=== PATIENT | male | born 1945 | race Hispanic/Latino ===

== ENCOUNTER 2017-12-16 12:26 | Inpatient (IN) | payer MEDICARE ==
[2017-12-16 12:46] VITALS: BMI 39.5
--- NOTE | 2017-12-16 17:46 | PCM.OPOC ---
Physiatry Overall Plan of Care - Overall Plan of Care Estimated Length of Stay in Weeks: 3 Rehab Impairment: Mobility, Gait, Balance, Coordination Etiologic Diagnosis: Amputee Rehab/Medical Prognosis: Fair - Anticipated Interventions Physical Therapy:: Yes Occupational Therapy:: Yes Speech Therapy:: No Recreational Therapy:: Yes - Therapy Goals Bed Mobility: Supervision Ambulation: Minimal Assistance Functional Positional Changes:: Supervision - Discharge Plan Identification of Barriers to Discharge: Cognition, Home Situation Discharge Destination: Subacute
--- NOTE | 2017-12-16 17:50 | CP.PCM.CON ---
History of Present Illness - History of Present Illness History of Present Illness: Dr Huerta PMR coverage consultation on Tj Cavanaugh, born 1945 who has been admitted to [facility] for acute inpatient rehabilitation following a right BKA. He was a very heavy smoker. +PVD. Post op stable and on no medications. Case is complicated by Parkinson's disease. Review of Systems - Constitutional Constitutional: absent: Anorexia, Chills - EENT Eyes: absent: Blind Spots Ears: absent: Ear Discharge, Ear Pain, Tinnitus Nose/Mouth/Throat: absent: Nasal Congestion - Cardiovascular Cardiovascular: absent: Chest Pain - Respiratory Respiratory: absent: Cough, Dyspnea - Gastrointestinal Gastrointestinal: Constipation (this is a baseline though). absent: Abdominal Pain, Belching - Musculoskeletal Musculoskeletal: absent: Numbness - Integumentary Integumentary: Other (right BKA 24 bri) Past Patient History - Past Social History Smoking Status: Heavy Smoker > 10 Cigarettes Daily Alcohol: Occasional Drugs: Denies Home Situation {Lives}: Alone - CARDIAC Hx Circulatory Problems: Yes Hx Hypertension: Yes Hx Pacemaker: Yes Hx Peripheral Vascular Disease: Yes - PULMONARY Hx Chronic Obstructive Pulmonary Disease (COPD): Yes - NEUROLOGICAL Hx Parkinson's Disease: Yes - ENDOCRINE/METABOLIC Hx Diabetes Mellitus Type 2: Yes - MUSCULOSKELETAL/RHEUMATOLOGICAL Hx Back Pain: Yes Hx Falls: No - PSYCHIATRIC Hx Substance Use: No - SURGICAL HISTORY Other/Comment: HX of CVAx3, Parkinsons , CAD with pacemaker - ANESTHESIA Hx Anesthesia Reactions: No Meds Allergies/Adverse Reactions: Allergies Allergy/AdvReac Type Severity Reaction Status Date / Time No Known Allergies Allergy Verified 12/16/17 16:28 Physical Exam - Constitutional Appears: Non-toxic, No Acute Distress - Head Exam Head Exam: ATRAUMATIC, NORMAL INSPECTION, NORMOCEPHALIC - Eye Exam Eye Exam: EOMI - ENT Exam ENT Exam: Mucous Membranes Moist - Respiratory Exam Respiratory Exam: NORMAL BREATHING PATTERN - Cardiovascular Exam Cardiovascular Exam: REGULAR RHYTHM - GI/Abdominal Exam GI & Abdominal Exam: Distended, Normal Bowel Sounds. absent: Firm - Neurological Exam Neurological exam: Alert, CN II-XII Intact, Oriented x3 Assessment & Plan - Assessment and Plan (Free Text) Assessment: PT/OT to continue to help increase functional independence Team conference for d/c planning Pain: controlled Vascular: no evidence of DVT. +PVD will clean the wound and apply xeroform GI: No evidence of constipation or diarrhea Patient is an excellent acute rehabilitation candidate and will have focused pain management, wound care, PT, OT and recreational therapy to help facilitate a safe and appropriate d/c plan impairment code 05.4
[2017-12-16] MEDS ORDERED: Oxycodone/Acetaminophen 5/325 mg Tab PO PRN ×2 (18:07→21:51)
--- NOTE | 2017-12-16 18:07 | CP.PCM.HP ---
History of Present Illness - History of Present Illness History of Present Illness: 72 y/o male with PMH parkinsonism ,IDDM, HTN, Dyslipidemia, CAD ,obesity, COPD , sleep apnea on CPAP ( not compliant ) PAD with multiple stents and right fem- pop bypass , SSS s/p pacemaker placement was transferred to [facility] acute rehab from [facility] for physical therapy after right BKA for ischemic limb.As per patient he noticed an open wound on his right foot for more than 3 weeks or longer prior to admission . He decided to call EMS and was taken to hospital for evaluation of severe pain and discomfort to right foot, unable to ambulate. He also noticed discoloration to his foot. After evaluation by multiple consultants it wsa decided that right below knee amputation was necessary. He underwent right BKA 12/09/17. At present doing well , pain is controlled and surgical wound healing well. Denies any chest pain , SOB, palpitations, PND or orthopnea. Refuses to use CPAP at night because feels uncomfortable. 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 Medications; Atorvastatin, Plavix, Heparin, sinemet, primidone, insulin , Lyrica ,Nicotine,losartan, Hydralazine, Perocet , Protonix Surgery ; pacemaker placemnet, stent placement and rigght fem - poppliteal bypass in august 2015, multiple angio stent placement for PVD , cataract Family history ; Father had herat problems Social history ; Lives in [place] by himself , has 5 children , active smoker 1 ppd x 60 years, just quit with this hospitalization, denies drug abuse or ETOH abuse, used to walk with walker ROS ;14 point review of system negative except above PMD ; Dr Suggs Present on Admission - Present on Admission Any Indicators Present on Admission: Yes History of Uncontrolled Diabetes: Yes Urinary Catheter: No Decubitus Ulcer Present: No Review of Systems - Review of Systems All systems: reviewed and no additional remarkable complaints except Past Patient History - Infectious Disease Hx of Infectious Diseases: None - Tetanus Immunizations Tetanus Immunization: Unknown - Past Medical History & Family History Past Medical History?: Yes Past Family History: Reviewed and not pertinent - Past Social History Smoking Status: Heavy Smoker > 10 Cigarettes Daily Chewing Tobacco Use: No Cigar Use: No Alcohol: Occasional Drugs: Denies Home Situation {Lives}: Alone - CARDIAC Hx Circulatory Problems: Yes Hx Hypercholesterolemia: Yes Hx Hypertension: Yes Hx Pacemaker: Yes Hx Peripheral Vascular Disease: Yes - PULMONARY Hx Chronic Obstructive Pulmonary Disease (COPD): Yes Hx Sleep Apnea: Yes - NEUROLOGICAL Hx Parkinson's Disease: Yes - ENDOCRINE/METABOLIC Hx Diabetes Mellitus Type 2: Yes - HEMATOLOGICAL/ONCOLOGICAL Hx AIDS: No Hx Human Immunodeficiency Virus (HIV): No - MUSCULOSKELETAL/RHEUMATOLOGICAL Hx Back Pain: Yes (lumbar disc herniation ) Hx Falls: No - PSYCHIATRIC Hx Substance Use: No - SURGICAL HISTORY Hx Surgeries: Yes Hx Amputation: Yes Hx Angiogram: Yes Hx Angioplasty: Yes Hx Cataract Extraction: Yes Hx Cardiac Catheterization: Yes Other/Comment: HX of CVAx3, Parkinsons , CAD with pacemaker - ANESTHESIA Hx Anesthesia Reactions: No Meds Allergies/Adverse Reactions: Allergies Allergy/AdvReac Type Severity Reaction Status Date / Time No Known Allergies Allergy Verified 12/16/17 16:28 Physical Exam - Constitutional Appears: Non-toxic, No Acute Distress, Other (obese ) - Head Exam Head Exam: ATRAUMATIC, NORMAL INSPECTION, NORMOCEPHALIC - Eye Exam Eye Exam: EOMI, Normal appearance, PERRL Pupil Exam: NORMAL ACCOMODATION - ENT Exam ENT Exam: Mucous Membranes Moist, Normal Exam - Neck Exam Neck exam: Positive for: Full Rom, Normal Inspection - Respiratory Exam Respiratory Exam: Clear to Auscultation Bilateral, NORMAL BREATHING PATTERN. absent: Rales, Rhonchi, Wheezes - Cardiovascular Exam Cardiovascular Exam: REGULAR RHYTHM, RRR, +S1, +S2. absent: JVD - GI/Abdominal Exam GI & Abdominal Exam: Normal Bowel Sounds, Soft. absent: Distended, Guarding, Rebound, Tenderness - Rectal Exam Rectal Exam: Deferred - Extremities Exam Extremities exam: Positive for: normal capillary refill, pedal edema (2 + to LLE ), pedal pulses present. Negative for: calf tenderness Additional comments: right BKA with bri in place, healing well - Back Exam Back exam: NORMAL INSPECTION - Neurological Exam Neurological exam: Alert, CN II-XII Intact, Oriented x3 Additional comments: resting tremors to upper extremities - Psychiatric Exam Psychiatric exam: Normal Affect - Skin Skin Exam: Dry, Normal Color, Warm Results - Vital Signs Recent Vital Signs: Last Vital Signs Temp Pulse 62 12/16/17 16:29 Resp 20 12/16/17 16:29 BP Pulse Ox 98 12/16/17 16:29 Assessment & Plan - Assessment and Plan (Free Text) Assessment: 72 y/o male with PMH Parkinsonism ,IDDM, HTN, Dyslipidemia, CAD ,obesity, COPD , sleep apnea on CPAP ( not compliant ) PAD with multiple stents and right fem- pop bypass , SSS s/p pacemaker placement was transferred to [facility] acute rehab from [facility] for physical therapy after right BKA for ischemic limb.As per patient he noticed an open wound on his right foot for more than 3 weeks or longer prior to admission . He decided to call EMS and was taken to hospital for evaluation of severe pain and discomfort to right foot, unable to ambulate. He also noticed discoloration to his foot. After evaluation by multiple consultants it wsa decided that right below knee amputation was necessary. He underwent right BKA 12/09/17. At present doing well , pain is controlled and surgical wound healing well. Denies any chest pain , SOB, palpitations, PND or orthopnea. Refuses to use CPAP at night because feels uncomfortable. 1. s/p right BKA for ischemic limb Admit patient to acute rehab for physical therapy physiatry consult with Dr. Martinez continue local wound care to the stump pain management with percoset PRN, Lyrica Continue Plavix , Atorvastatin and Heparin for DVt prophylaxis 2. IDDM uncontrolled Accuchecks, insulin coverage Diabetic diet resume his insulin regiment that wsa strated at [facility] 3. Parkinsonism On Sinemet and Primidone 4. Sleep Apnea refusing CPAP 5. SSS s/p pacemaker 6.Hypertension on Hydralazine , losartan 7. Obesity BMI 39 8. PAD with multiple angio and stents/ CAD Continue Plavix , statin BP abd diabetic control 9. History CVA no residual deficit 10. DVt prophylaxis SCD to LLE Heparin SQ
[2017-12-16] MEDS: Insulin Detemir 100 Units/ml Inj SC SCH (21:24)
[2017-12-16] MEDS: Insulin Lispro (humaLOG) 100 Units/ml Inj SC SCH (21:25)
[2017-12-17] MEDS: Pantoprazole 40 mg EC Tab PO SCH (07:04)
[2017-12-17] MEDS: Insulin Lispro (humaLOG) 100 Units/ml Inj SC SCH ×4 (07:05→21:11)
[2017-12-17] MEDS: Insulin Regular 100 units/ml SC SCH ×3 (07:30→16:30)
[2017-12-17] MEDS: Insulin Detemir 100 Units/ml Inj SC SCH (21:12)
[2017-12-18] MEDS: Pantoprazole 40 mg EC Tab PO SCH (06:51)
[2017-12-18] MEDS: Insulin Regular 100 units/ml SC SCH ×4 (06:52→16:47)
[2017-12-18] MEDS: Insulin Lispro (humaLOG) 100 Units/ml Inj SC SCH ×4 (06:53→21:28)
[2017-12-18] MEDS: Insulin Detemir 100 Units/ml Inj SC SCH (21:29)
[2017-12-19] MEDS: Pantoprazole 40 mg EC Tab PO SCH (06:39)
[2017-12-19] MEDS: Insulin Lispro (humaLOG) 100 Units/ml Inj SC SCH ×6 (06:40→21:18)
[2017-12-19] MEDS: Insulin Regular 100 units/ml SC SCH ×2 (06:40→12:19)
[2017-12-19 06:41] LABS: BLOOD UREA NITROGEN 17 mg/dl (9-20); GFR AFRICAN-AMERICAN > 60; GFR NON-AFRICAN AMERICAN > 60
[2017-12-19 06:45] LABS: HEMOGLOBIN 10.3 g/dL (12.0-18.0); MEAN CELL VOLUME 80.8 fl (80.0-94.0); MEAN CORPUSCULAR HEMOGLOBIN 26.9 pg (27.0-31.0); MEAN CORPUSCULAR HGB CONC 33.3 g/dL (33.0-37.0); RBC 3.82 Mil/uL (4.40-5.90)
[2017-12-19] MEDS ORDERED: Oxycodone/Acetaminophen 5/325 mg Tab PO PRN (13:48)
--- NOTE | 2017-12-19 14:46 | CP.PCM.PN ---
Subjective - Date & Time of Evaluation Date of Evaluation: 12/19/17 Time of Evaluation: 12:00 - Subjective Subjective: Patient was seen and examined at bedside. He is doing well. OOB to chair at bedside. Tolerating therapies well. HD stable, NAD. Objective - Vital Signs/Intake and Output Vital Signs (last 24 hours): Temp Pulse Resp BP Pulse Ox 97.7 F 64 20 116/76 97 12/19/17 07:41 12/19/17 12:20 12/19/17 07:41 12/19/17 12:20 12/19/17 10:29 - Medications Medications: Current Medications Acetaminophen (Tylenol 325mg Tab) 650 mg PO Q6H PRN PRN Reason: Pain, Mild (1-3) Atorvastatin Calcium (Lipitor) 80 mg PO HS [facility] Last Admin: 12/18/17 21:29 Dose: 80 mg Carbidopa/Levodopa (Sinemet) 1 tab PO BID [facility] Last Admin: 12/19/17 08:18 Dose: 1 tab Clopidogrel Bisulfate (Plavix) 75 mg PO QAM [facility] Last Admin: 12/19/17 08:17 Dose: 75 mg Glipizide (Glucotrol) 10 mg PO 0730,1630 [facility] Last Admin: 12/19/17 06:39 Dose: 10 mg Heparin Sodium (Porcine) (Heparin) 5,000 units SC Q8 [facility] PRN Reason: Protocol Last Admin: 12/19/17 06:38 Dose: 5,000 units Hydralazine HCl (Apresoline) 25 mg PO Q8 [facility] Insulin Detemir (Levemir) 30 units SC HS [facility] Last Admin: 12/18/17 21:29 Dose: 30 unit Insulin Human Lispro (Humalog) 0 units SC ACHS [facility] PRN Reason: Protocol Last Admin: 12/19/17 12:17 Dose: 3 units Insulin Human Lispro (Humalog) 4 units SC AC [facility] Last Admin: 12/19/17 12:19 Dose: 4 unit Losartan Potassium (Cozaar) 50 mg PO DAILY [facility] Last Admin: 12/19/17 08:17 Dose: 50 mg Nicotine (Nicoderm Cq) 1 patch TD DAILY [facility] Last Admin: 12/19/17 08:17 Dose: 1 patch Oxycodone/Acetaminophen (Percocet 5/325 Mg Tab) 1 tab PO Q4 PRN PRN Reason: Other Stop: 03/29/18 13:48 Pantoprazole Sodium (Protonix Ec Tab) 40 mg PO ACB [facility] Last Admin: 12/19/17 06:39 Dose: 40 mg Pregabalin (Lyrica) 50 mg PO BID [facility] Last Admin: 12/19/17 08:19 Dose: 50 mg Primidone (Mysoline) 50 mg PO HS [facility] Last Admin: 12/18/17 21:30 Dose: 50 mg - Labs Labs: 12/19/17 05:20 12/19/17 05:20 - Additional Findings Additional findings: Physical exam: Constitutional- cooperative, awake, alert Head- NCAT, PERRL Eye- PERRL, EOMI ENT- normal exam, MMM. Neck- normal inspection, supple, no JVD Respiratory- CTAB, no wheezes rales rhonchi Cardiovascular- RRR, +S1, +S2 no MRG GI/Abdominal- protuberant but nondistended normal bowel sounds, soft, no mass, no hsm Skin- warm, dry Extremities Exam- s/p Right BKA. left leg normal capillary refill, normal inspection Neurological Exam- alert, awake, oriented Psych- normal mood, normal affect Assessment and Plan - Assessment and Plan (Free Text) Plan: 72 y/o male with PMH Parkinsonism ,IDDM, HTN, Dyslipidemia, CAD ,obesity, COPD , sleep apnea on CPAP ( not compliant ) PAD with multiple stents and right fem- pop bypass , SSS s/p pacemaker placement was transferred to [facility] acute rehab from [facility] for physical therapy after right BKA for ischemic limb.As per patient he noticed an open wound on his right foot for more than 3 weeks or longer prior to admission . He decided to call EMS and was taken to hospital for evaluation of severe pain and discomfort to right foot, unable to ambulate. He also noticed discoloration to his foot. After evaluation by multiple consultants it wsa decided that right below knee amputation was necessary. He underwent right BKA 12/09/17. At present doing well , pain is controlled and surgical wound healing well. Denies any chest pain , SOB, palpitations, PND or orthopnea. Refuses to use CPAP at night because feels uncomfortable. 1. s/p right BKA for ischemic limb Continue acute rehab for physical therapy physiatry consult with Dr. Martinez continue local wound care to the stump pain management with percoset PRN, [place] Continue Plavix , Atorvastatin and Heparin for DVt prophylaxis 2. IDDM- uncontrolled HGA1C = 11.5 Accuchecks, Diabetic diet Levemir 30 units SC HS Lispro 4 units SC AC and lispro sliding scale coverage Glipizide 10 mg po BID 3. Parkinsonism On Sinemet and Primidone 4. Sleep Apnea refusing CPAP 5. SSS s/p pacemaker 6.Hypertension on Hydralazine, decreased to 25 mg po TID as BP is borderline low with QID losartan 7. Obesity BMI 39 8. PAD with multiple angio and stents/ CAD Continue Plavix , statin BP abd diabetic control 9. History CVA no residual deficit statin 10. DVt prophylaxis SCD to LLE Heparin SQ
[2017-12-19] MEDS: Insulin Detemir 100 Units/ml Inj SC SCH (21:08)
[2017-12-20] MEDS: Pantoprazole 40 mg EC Tab PO SCH (06:45)
[2017-12-20] MEDS: Insulin Lispro (humaLOG) 100 Units/ml Inj SC SCH ×7 (06:47→21:55)
--- NOTE | 2017-12-20 21:21 | PN ---
PHYSIATRY PROGRESS NOTE DATE: SUBJECTIVE: The patient is feeling fine, a 72-year-old patient, the patient with status post right below-knee amputation. No acute complaints of stump pain. PHYSICAL EXAMINATION: VITAL SIGNS: Stable. NECK: Supple. CHEST: Symmetrical. HEART: Sounds S1 and S2. ABDOMEN: Benign. EXTREMITIES: No clubbing, cyanosis, or edema. Right stump healing with Phong wrap in place. IMPRESSION: Right below-knee amputation, ICD code of 05.4, also history of cerebrovascular accident, hypertension, diabetes, sleep apnea, and Parkinson's disease. PLAN: Plan for physical therapy, occupational therapy, full range of motion, strengthening, transfers, ambulation, gait training, stump desensitization, and preprosthetic training. Edmond Mittal MD
[2017-12-20] MEDS: Insulin Detemir 100 Units/ml Inj SC SCH (21:55)
[2017-12-21] MEDS: Pantoprazole 40 mg EC Tab PO SCH (06:44)
[2017-12-21] MEDS: Insulin Lispro (humaLOG) 100 Units/ml Inj SC SCH ×7 (07:50→21:37)
--- NOTE | 2017-12-21 12:27 | PSY.TMCNF ---
Nursing - Vital Signs Vital Signs (Last 8 hours): Vital Signs 12/21/17 12/21/17 12/21/17 05:53 08:10 08:41 Temperature 98.0 F Pulse Rate 63 96 H 96 H Respiratory 22 Rate Blood Pressure 151/69 H 104/62 104/62 O2 Sat by Pulse 100 Oximetry Pain: 0 - Precautions: Precautions: Fall Prevention - Medications/Other Issues Comment: On Heparin - Skin Incision Site: right BKA stump/residual Dressing Status: Changed Incision: Healing Well, [place] Intact, No Odor Incision Line Treatment: claeanse with NSS, cover with Gauze,nabil, wrap with saúl wrap - Toileting Toileting: Minimal Assistance - Bladder Management Bladder Pattern: Normal Voiding Method: Toilet Bladder Management: Independent Frequency of Accidents: none - Bowel Management Bowel Pattern: Normal Bowel Management: Moderate Assistance Frequency of Accidents: none - Transfers Transfers: Minimal Assistance - ADL's ADL's: Minimal Assistance - Pain Management Comments: denies - Patient/Family Teaching Comments: safety measures - Goals/Time Frame Comments: fall prevention - Provider Provider: YARELIS Gee,CRRN Physical Therapy - Bed Mobility Bed Mobility: Moderate Assistance, Maximum Assistance - Transfers Wheelchair to Mat: Minimal Assistance Sit to Stand: Minimal Assistance - Ambulation Level of Assistance: Verbal Cues, Minimal Assistance Distance (ft.): 40 Assistive Devices: Rolling Walker - Stair Negotiation Stairs: Level of Assistance: Not Tested - Standing Balance Static Stand: Minimal Assistance - Pain Comment: pt reports occasional pain on distal limb; occasional phantom limb pain - Insight/Carryover Insight/Carryover: Good - Patient/Family Education Comment: Pt education provided for increased safety awareness and proper techniques during functional mobility training. Pt/family education with pts daughter on rehab goals and d/c planning s/p amputation - Assessment/Plan Assessment: Pt is agreeable to participate in recreation therapy sessions. Pt was oriented to benefits and purpose of participating in leisure tasks throughout stay on unit. Pt was provided with word search task to complete during free time as well. Pt's mood is stable-positive throughout stay. Pt will benefit from participating in recreation therapy sessions throughout stay on unit to improve activity tolerance level and leisure awareness level. - Goals Timeframe: 3 weeks Goals: SIt < > supine mod I. Sit < > stand mod I with RW. BEd < > chair transfers mod I with RW. Pt will ambulate 50 ft mod I with RW - Provider Therapist: izabella License Number: [id number] Occupational Therapy - Arousal/Attention/Orientation Patient Orientation: Person, Place, Time - ADL/IADL Self Feeding: Set-up Help Grooming: Supervision, Set-up Help Dressing-Upper Extremity: Supervision, Verbal Cues, Set-up Help Dressing-Lower Extremity: Verbal Cues, Set-up Help, Moderate Assistance Comment: -pt educated on uses/applications of linoleum floor installer, sockaide, long shoe horn & dressing stick; pt needs additional training to improve carryover/imdependence - Sitting Balance Static Sitting: Independent without upper extremity support Dynamic Sitting: Reaches across midline, Reaches out of base of support, Reaches within base of support, Requires supervision Comment: seated at edge of bed - Transfers Wheelchair to Bed Transfers: Verbal Cues, Set-up Help, Minimal Assistance Toilet Transfers: Verbal Cues, Set-up Help, Minimal Assistance Comment: -pivots and with RW. -shower transfer: TBA - Wheelchair Management Level of Assistance: Supervision, Verbal Cues, Set-up Help Distance (ft.): 75 - Upper Extremity Status Right Upper Extremity Comment: resting tremors BUES; A/PROM is WNLs Left Upper Extremity Comment: resting tremors BUES; \A/PROM is WNLs - Pain Comment: pt reports occasional pain on distal limb; occasional phantom limb pain - Insight/Carryover Insight/Carryover: Good - Patient/Family Education Comment: Pt education provided for increased safety awareness and proper techniques during functional mobility training. Pt/family education with pts daughter on rehab goals and d/c planning s/p amputation - Assessment/Plan Assessment: Pt is agreeable to participate in recreation therapy sessions. Pt was oriented to benefits and purpose of participating in leisure tasks throughout stay on unit. Pt was provided with word search task to complete during free time as well. Pt's mood is stable-positive throughout stay. Pt will benefit from participating in recreation therapy sessions throughout stay on unit to improve activity tolerance level and leisure awareness level. - Goals Timeframe: 3 weeks Goals: SIt < > supine mod I. Sit < > stand mod I with RW. BEd < > chair transfers mod I with RW. Pt will ambulate 50 ft mod I with RW - Provider Therapist: Jacqui Olivier, OTR/L Speech Therapy - Plan Assessment: Pt is agreeable to participate in recreation therapy sessions. Pt was oriented to benefits and purpose of participating in leisure tasks throughout stay on unit. Pt was provided with word search task to complete during free time as well. Pt's mood is stable-positive throughout stay. Pt will benefit from participating in recreation therapy sessions throughout stay on unit to improve activity tolerance level and leisure awareness level. Recreational Therapy - Participation Participation: Participates in Individual and/or Group Sessions - Attendance Attendance: 3-5 times per week - Activities Leisure Activities: Television - Socialization Level of Socialization: Initiates/interacts freely with care givers and peer - Assessment Assessment/Plan: Pt is agreeable to participate in recreation therapy sessions. Pt was oriented to benefits and purpose of participating in leisure tasks throughout stay on unit. Pt was provided with word search task to complete during free time as well. Pt's mood is stable-positive throughout stay. Pt will benefit from participating in recreation therapy sessions throughout stay on unit to improve activity tolerance level and leisure awareness level. Problems Currently Limiting Participation: decrease leisure awareness level, decrease mobility within community, L side weakness Goals and Time Frame: Pt will be encouraged to participate in 1:1 and group recreation therapy sessions 3-5x week to improve leisure awareness level, diversion, direction following, and arousal level. - Provider Therapist: Veda aVnn, [employer] #[id number] Nutrition - Current Diet Current Diet/ Supplement/ Feedings: Moderate consistent CHO heart healthy soft diet - Appetite Percent Meal Consumed: 75-100% - Comments Comments: safety measures - Assessment/Goals/Time Frame Assessment/Goals/Time Frame: On Heparin - Provider Provider: Helena Joya RD Case Management - Discharge Plan Discharge Plan: Home with significant other/family Rehabilitation Plan - Treatment Plan Treatment Plan: Physical Therapy, Occupational Therapy, Dietary, Patient/Family Education - Recommendation Recommendation: Physical Therapy, Occupational Therapy, Dietary, Patient/Family Education - Discharge Plan Discharge to: Home (january 01)
--- NOTE | 2017-12-21 13:44 | CP.PCM.PN ---
Subjective - Date & Time of Evaluation Date of Evaluation: 12/21/17 Time of Evaluation: 10:20 - Subjective Subjective: Patient seen and examined. Feeling better. Denied any complaint. Objective - Vital Signs/Intake and Output Vital Signs (last 24 hours): Temp Pulse Resp BP Pulse Ox 98.0 F 96 H 22 104/62 100 12/21/17 08:41 12/21/17 08:41 12/21/17 08:41 12/21/17 08:41 12/21/17 08:41 - Medications Medications: Current Medications Acetaminophen (Tylenol 325mg Tab) 650 mg PO Q6H PRN PRN Reason: Pain, Mild (1-3) Atorvastatin Calcium (Lipitor) 80 mg PO HS [facility] Last Admin: 12/20/17 21:22 Dose: 80 mg Carbidopa/Levodopa (Sinemet) 1 tab PO BID [facility] Last Admin: 12/21/17 08:11 Dose: 1 tab Clopidogrel Bisulfate (Plavix) 75 mg PO QAM [facility] Last Admin: 12/21/17 08:11 Dose: 75 mg Glipizide (Glucotrol) 10 mg PO 0730,1630 [facility] Last Admin: 12/21/17 06:44 Dose: 10 mg Heparin Sodium (Porcine) (Heparin) 5,000 units SC Q8 [facility] PRN Reason: Protocol Last Admin: 12/21/17 13:38 Dose: 5,000 units Hydralazine HCl (Apresoline) 25 mg PO Q8 [facility] Last Admin: 12/21/17 05:53 Dose: 25 mg Insulin Detemir (Levemir) 30 units SC HS [facility] Last Admin: 12/20/17 21:55 Dose: 30 unit Insulin Human Lispro (Humalog) 0 units SC ACHS [facility] PRN Reason: Protocol Last Admin: 12/21/17 12:00 Dose: 3 units Insulin Human Lispro (Humalog) 6 units SC AC [facility] Last Admin: 12/21/17 12:00 Dose: 6 u Losartan Potassium (Cozaar) 50 mg PO DAILY [facility] Last Admin: 12/21/17 08:10 Dose: 50 mg Nicotine (Nicoderm Cq) 1 patch TD DAILY [facility] Last Admin: 12/21/17 08:12 Dose: 1 patch Oxycodone/Acetaminophen (Percocet 5/325 Mg Tab) 1 tab PO Q4 PRN PRN Reason: Other Stop: 12/22/17 13:48 Pantoprazole Sodium (Protonix Ec Tab) 40 mg PO ACB [facility] Last Admin: 12/21/17 06:44 Dose: 40 mg Pregabalin (Lyrica) 50 mg PO BID [facility] Last Admin: 12/21/17 08:08 Dose: 50 mg Primidone (Mysoline) 50 mg PO HS [facility] Last Admin: 12/20/17 21:54 Dose: 50 mg - Labs Labs: 12/19/17 05:20 12/19/17 05:20 - Constitutional Appears: No Acute Distress - Head Exam Head Exam: ATRAUMATIC - Eye Exam Eye Exam: absent: Scleral icterus - ENT Exam ENT Exam: Mucous Membranes Moist - Neck Exam Neck Exam: absent: Meningismus - Respiratory Exam Respiratory Exam: absent: Rales, Rhonchi, Wheezes, Respiratory Distress - Cardiovascular Exam Cardiovascular Exam: REGULAR RHYTHM, +S1, +S2 - GI/Abdominal Exam GI & Abdominal Exam: Soft. absent: Tenderness - Rectal Exam Rectal Exam: Deferred - Extremities Exam Extremities Exam: absent: Normal Inspection (right BKA stump clean and dry, no sign of inflammation) - Back Exam Back Exam: NORMAL INSPECTION - Neurological Exam Neurological Exam: Alert, Oriented x3 - Psychiatric Exam Psychiatric exam: Normal Affect - Skin Skin Exam: Dry, Intact Assessment and Plan - Assessment and Plan (Free Text) Assessment: 72 yo male with history of Parkinson's Disease, DM2, CAD, HTN, COPD, Sleep Apnea , PVD and Pacemaker for SSS had BKA of the right leg on 12/09/17 at [facility] because of gangrene of the left foot. He was transferred to [facility] and admitted at Acute [facility]hab for PT/OT. 1. Post Right BKA Dr Martinez on physiatry consult continue PT/OT pain bearable and manageable with medications stump clean and dry without sign of infection 2. DM2 BS uncontrolled increase Lispro to 6 units SC AC continue Levemir 30 units SC HS continue Glucotrol 10mg PO BID 3. Parkinson's Disease continue Sinemet and Primidone 4. Sleep Apnea continue CPAP HS (patient has been refusing) 5. HTN BP stable continue Hydralazine 25mg PO q 8hrs Losartan 50mg PO daily 6. CAD continue Plavix and statin 7. DVT prophylaxis Heparin 5000 units SC q 8hrs
--- NOTE | 2017-12-21 14:24 | CP.PCM.PN ---
Subjective - Date & Time of Evaluation Date of Evaluation: 12/21/17 Time of Evaluation: 10:00 - Subjective Subjective: no acute stump pain Objective - Vital Signs/Intake and Output Vital Signs (last 24 hours): Temp Pulse Resp BP Pulse Ox 98.0 F 64 22 112/50 L 100 12/21/17 08:41 12/21/17 13:39 12/21/17 08:41 12/21/17 13:39 12/21/17 08:41 - Medications Medications: Current Medications Acetaminophen (Tylenol 325mg Tab) 650 mg PO Q6H PRN PRN Reason: Pain, Mild (1-3) Atorvastatin Calcium (Lipitor) 80 mg PO HS [facility] Last Admin: 12/20/17 21:22 Dose: 80 mg Carbidopa/Levodopa (Sinemet) 1 tab PO BID [facility] Last Admin: 12/21/17 08:11 Dose: 1 tab Clopidogrel Bisulfate (Plavix) 75 mg PO QAM [facility] Last Admin: 12/21/17 08:11 Dose: 75 mg Glipizide (Glucotrol) 10 mg PO 0730,1630 [facility] Last Admin: 12/21/17 06:44 Dose: 10 mg Heparin Sodium (Porcine) (Heparin) 5,000 units SC Q8 [facility] PRN Reason: Protocol Last Admin: 12/21/17 13:38 Dose: 5,000 units Hydralazine HCl (Apresoline) 25 mg PO Q8 [facility] Last Admin: 12/21/17 13:39 Dose: 25 mg Insulin Detemir (Levemir) 30 units SC HS [facility] Last Admin: 12/20/17 21:55 Dose: 30 unit Insulin Human Lispro (Humalog) 0 units SC ACHS [facility] PRN Reason: Protocol Last Admin: 12/21/17 12:00 Dose: 3 units Insulin Human Lispro (Humalog) 6 units SC AC [facility] Last Admin: 12/21/17 12:00 Dose: 6 u Losartan Potassium (Cozaar) 50 mg PO DAILY [facility] Last Admin: 12/21/17 08:10 Dose: 50 mg Nicotine (Nicoderm Cq) 1 patch TD DAILY [facility] Last Admin: 12/21/17 08:12 Dose: 1 patch Oxycodone/Acetaminophen (Percocet 5/325 Mg Tab) 1 tab PO Q4 PRN PRN Reason: Other Stop: 12/22/17 13:48 Pantoprazole Sodium (Protonix Ec Tab) 40 mg PO ACB [facility] Last Admin: 12/21/17 06:44 Dose: 40 mg Pregabalin (Lyrica) 50 mg PO BID [facility] Last Admin: 12/21/17 08:08 Dose: 50 mg Primidone (Mysoline) 50 mg PO HS [facility] Last Admin: 12/20/17 21:54 Dose: 50 mg - Labs Labs: 12/19/17 05:20 12/19/17 05:20 - Head Exam Head Exam: ATRAUMATIC, NORMAL INSPECTION, NORMOCEPHALIC - Eye Exam Eye Exam: EOMI, Normal appearance, PERRL Pupil Exam: NORMAL ACCOMODATION - ENT Exam ENT Exam: Mucous Membranes Moist, Normal Exam - Neck Exam Neck Exam: Normal Inspection - Respiratory Exam Respiratory Exam: NORMAL BREATHING PATTERN - Cardiovascular Exam Cardiovascular Exam: REGULAR RHYTHM - GI/Abdominal Exam GI & Abdominal Exam: Soft, Normal Bowel Sounds - Rectal Exam Rectal Exam: NORMAL INSPECTION - Exam External exam: NORMAL EXTERNAL EXAM - Extremities Exam Extremities Exam: Full ROM, Normal Capillary Refill - Back Exam Back Exam: NORMAL INSPECTION - Neurological Exam Neurological Exam: Alert, Awake Neuro motor strength exam: Left Upper Extremity: 3, Right Upper Extremity: 3, Left Lower Extremity: 3, Right Lower Extremity: 2/1 (righ tBKa stump) - Psychiatric Exam Psychiatric exam: Normal Affect, Normal Mood - Skin Skin Exam: Dry, Intact Assessment and Plan (1) Below knee amputation status Assessment & Plan: plan for physical, occupational rec for Dc january 01 discussed with female for prosthesis Status: Acute (2) Complete below knee amputation of right lower extremity Status: Acute
[2017-12-21] MEDS: Insulin Detemir 100 Units/ml Inj SC SCH (21:37)
[2017-12-22] MEDS: Pantoprazole 40 mg EC Tab PO SCH (06:58)
[2017-12-22] MEDS: Insulin Lispro (humaLOG) 100 Units/ml Inj SC SCH ×7 (07:04→21:15)
[2017-12-22] MEDS ORDERED: Oxycodone/Acetaminophen 5/325 mg Tab PO PRN (15:11)
[2017-12-22] MEDS: Insulin Detemir 100 Units/ml Inj SC SCH (21:14)
[2017-12-23] MEDS: Pantoprazole 40 mg EC Tab PO SCH (06:40)
[2017-12-23] MEDS: Oxycodone/Acetaminophen 5/325 mg Tab PO PRN (07:17)
[2017-12-23] MEDS: Insulin Lispro (humaLOG) 100 Units/ml Inj SC SCH ×7 (07:19→21:34)
--- NOTE | 2017-12-23 12:29 | CP.PCM.PN ---
Subjective - Date & Time of Evaluation Date of Evaluation: 12/23/17 Time of Evaluation: 12:29 - Subjective Subjective: patient doing well, no complaints, participating in physical therapy well. Hemodynamically stable and in no acute distress Objective - Vital Signs/Intake and Output Vital Signs (last 24 hours): Temp Pulse Resp BP Pulse Ox 97.9 F 63 22 130/52 L 95 12/23/17 07:32 12/23/17 08:36 12/23/17 07:32 12/23/17 08:36 12/23/17 07:32 Physical exam: Constitutional- cooperative, awake, alert Head- NCAT, PERRL Eye- PERRL, EOMI ENT- normal exam, MMM. Neck- normal inspection, supple, no JVD Respiratory- CTAB, no wheezes rales rhonchi Cardiovascular- RRR, +S1, +S2 no MRG GI/Abdominal- normal bowel sounds, soft, no mass, no hsm Skin- warm, dry Extremities Exam- normal capillary refill, normal inspections status post rright BKA Neurological Exam- alert, awake, oriented Psych- normal mood, normal affect - Medications Medications: Current Medications Acetaminophen (Tylenol 325mg Tab) 650 mg PO Q6H PRN PRN Reason: Pain, Mild (1-3) Atorvastatin Calcium (Lipitor) 80 mg PO [facility] Last Admin: 12/22/17 21:10 Dose: 80 mg Carbidopa/Levodopa (Sinemet) 1 tab PO BID [facility] Last Admin: 12/23/17 08:35 Dose: 1 tab Clopidogrel Bisulfate (Plavix) 75 mg PO QAM [facility] Last Admin: 12/23/17 08:35 Dose: 75 mg Glipizide (Glucotrol) 10 mg PO 0730,1630 [facility] Last Admin: 12/23/17 06:39 Dose: 10 mg Heparin Sodium (Porcine) (Heparin) 5,000 units SC Q8 [facility] PRN Reason: Protocol Last Admin: 12/23/17 06:41 Dose: 5,000 units Hydralazine HCl (Apresoline) 25 mg PO Q8 [facility] Last Admin: 12/23/17 06:39 Dose: 25 mg Insulin Detemir (Levemir) 30 units SC HS [facility] Last Admin: 12/22/17 21:14 Dose: 30 unit Insulin Human Lispro (Humalog) 0 units SC [facility] PRN Reason: Protocol Last Admin: 12/23/17 12:01 Dose: 4 units Insulin Human Lispro (Humalog) 6 units SC AC [facility] Last Admin: 12/23/17 12:01 Dose: 6 units Lactic Acid (Lac-Hydrin 12% Lotion (225 G)) 1 applic TOP TID [facility] Last Admin: 12/23/17 12:02 Dose: 1 applic Losartan Potassium (Cozaar) 50 mg PO DAILY [facility] Last Admin: 12/23/17 08:36 Dose: 50 mg Nicotine (Nicoderm Cq) 1 patch TD DAILY [facility] Last Admin: 12/23/17 08:34 Dose: 1 patch Oxycodone/Acetaminophen (Percocet 5/325 Mg Tab) 1 tab PO Q4 PRN PRN Reason: Pain scale 4-10. Stop: 12/25/17 15:12 Last Admin: 12/23/17 07:17 Dose: 1 tab Pantoprazole Sodium (Protonix Ec Tab) 40 mg PO ACB [facility] Last Admin: 12/23/17 06:40 Dose: 40 mg Pregabalin (Lyrica) 50 mg PO BID [facility] Last Admin: 12/23/17 08:35 Dose: 50 mg Primidone (Mysoline) 50 mg PO HS [facility] Last Admin: 12/22/17 21:11 Dose: 50 mg - Labs Labs: 12/19/17 05:20 12/19/17 05:20 Assessment and Plan - Assessment and Plan (Free Text) Plan: 72 yo male with history of Parkinson's Disease, DM2, CAD, HTN, COPD, Sleep Apnea , PVD and Pacemaker for SSS had BKA of the right leg on 12/09/17 at [facility] because of gangrene of the left foot. He was transferred to [facility] and admitted at Acute Rehab for PT/OT. 1. Post Right BKA Dr Martinez on physiatry consult continue PT/OT pain bearable and manageable with medications stump clean and dry without sign of infection 2. DM2 BS uncontrolled increase Lispro to 6 units SC AC continue Levemir 30 units SC HS continue Glucotrol 10mg PO BID 3. Parkinson's Disease continue Sinemet and Primidone 4. Sleep Apnea continue CPAP HS (patient has been refusing) 5. HTN BP stable continue Hydralazine 25mg PO q 8hrs Losartan 50mg PO daily 6. CAD continue Plavix and statin 7. DVT prophylaxis Heparin 5000 units SC q 8hrs
[2017-12-23] MEDS: Insulin Detemir 100 Units/ml Inj SC SCH (21:34)
--- NOTE | 2017-12-23 22:06 | CP.PCM.PN ---
Subjective - Date & Time of Evaluation Date of Evaluation: 12/23/17 Time of Evaluation: 20:25 - Subjective Subjective: no acute complaints at present Objective - Vital Signs/Intake and Output Vital Signs (last 24 hours): Temp Pulse Resp BP Pulse Ox 97.9 F 62 19 132/57 L 97 12/23/17 20:00 12/23/17 21:30 12/23/17 20:00 12/23/17 21:30 12/23/17 20:00 - Medications Medications: Current Medications Acetaminophen (Tylenol 325mg Tab) 650 mg PO Q6H PRN PRN Reason: Pain, Mild (1-3) Atorvastatin Calcium (Lipitor) 80 mg PO HS [facility] Last Admin: 12/23/17 21:17 Dose: 80 mg Carbidopa/Levodopa (Sinemet) 1 tab PO BID [facility] Last Admin: 12/23/17 16:19 Dose: 1 tab Clopidogrel Bisulfate (Plavix) 75 mg PO QAM [facility] Last Admin: 12/23/17 08:35 Dose: 75 mg Glipizide (Glucotrol) 10 mg PO 0730,1630 [facility] Last Admin: 12/23/17 16:19 Dose: 10 mg Heparin Sodium (Porcine) (Heparin) 5,000 units SC Q8 [facility] PRN Reason: Protocol Last Admin: 12/23/17 21:33 Dose: 5,000 units Hydralazine HCl (Apresoline) 25 mg PO Q8 [facility] Last Admin: 12/23/17 21:30 Dose: 25 mg Insulin Detemir (Levemir) 30 units SC HS [facility] Last Admin: 12/23/17 21:34 Dose: 30 unit Insulin Human Lispro (Humalog) 0 units SC [facility] PRN Reason: Protocol Last Admin: 12/23/17 21:34 Dose: Not Given Insulin Human Lispro (Humalog) 6 units SC AC [facility] Last Admin: 12/23/17 16:18 Dose: 6 units Lactic Acid (Lac-Hydrin 12% Lotion (225 G)) 1 applic TOP TID [facility] Last Admin: 12/23/17 16:20 Dose: 1 applic Losartan Potassium (Cozaar) 50 mg PO DAILY [facility] Last Admin: 12/23/17 08:36 Dose: 50 mg Nicotine (Nicoderm Cq) 1 patch TD DAILY [facility] Last Admin: 12/23/17 08:34 Dose: 1 patch Oxycodone/Acetaminophen (Percocet 5/325 Mg Tab) 1 tab PO Q4 PRN PRN Reason: Pain scale 4-10. Stop: 12/25/17 15:12 Last Admin: 12/23/17 07:17 Dose: 1 tab Pantoprazole Sodium (Protonix Ec Tab) 40 mg PO ACB [facility] Last Admin: 12/23/17 06:40 Dose: 40 mg Pregabalin (Lyrica) 50 mg PO BID [facility] Last Admin: 12/23/17 16:17 Dose: 50 mg Primidone (Mysoline) 50 mg PO HS [facility] Last Admin: 12/23/17 21:35 Dose: 50 mg - Labs Labs: 12/19/17 05:20 12/19/17 05:20 - Head Exam Head Exam: ATRAUMATIC, NORMAL INSPECTION, NORMOCEPHALIC - Eye Exam Eye Exam: EOMI, Normal appearance Pupil Exam: NORMAL ACCOMODATION, PERRL - ENT Exam ENT Exam: Mucous Membranes Moist, Normal Exam - Neck Exam Neck Exam: Full ROM, Normal Inspection - Respiratory Exam Respiratory Exam: Clear to Ausculation Bilateral, NORMAL BREATHING PATTERN - Cardiovascular Exam Cardiovascular Exam: REGULAR RHYTHM - GI/Abdominal Exam GI & Abdominal Exam: Soft, Normal Bowel Sounds - Rectal Exam Rectal Exam: NORMAL INSPECTION - Exam External exam: NORMAL EXTERNAL EXAM - Extremities Exam Extremities Exam: Full ROM, Normal Capillary Refill - Back Exam Back Exam: NORMAL INSPECTION - Neurological Exam Neurological Exam: Alert, Awake Neuro motor strength exam: Left Upper Extremity: 4, Right Upper Extremity: 4, Left Lower Extremity: 4, Right Lower Extremity: 3 (BKa stump) - Psychiatric Exam Psychiatric exam: Normal Affect Assessment and Plan (1) Below knee amputation status Assessment & Plan: plan for stump wraping , shaping for range of motion, strenghtening, transfers and gait training later prosthetic training Status: Acute (2) Complete below knee amputation of right lower extremity Status: Acute
[2017-12-24] MEDS: Pantoprazole 40 mg EC Tab PO SCH (06:50)
[2017-12-24] MEDS: Insulin Lispro (humaLOG) 100 Units/ml Inj SC SCH ×7 (07:18→21:00)
[2017-12-24] MEDS: Oxycodone/Acetaminophen 5/325 mg Tab PO PRN (08:05)
--- NOTE | 2017-12-24 11:26 | CP.PCM.PN ---
Subjective - Date & Time of Evaluation Date of Evaluation: 12/24/17 Time of Evaluation: 07:30 - Subjective Subjective: no stump pain Objective - Vital Signs/Intake and Output Vital Signs (last 24 hours): Temp Pulse Resp BP Pulse Ox 97.9 F 74 20 125/56 L 96 12/24/17 07:48 12/24/17 08:06 12/24/17 07:48 12/24/17 08:06 12/24/17 07:48 - Medications Medications: Current Medications Acetaminophen (Tylenol 325mg Tab) 650 mg PO Q6H PRN PRN Reason: Pain, Mild (1-3) Atorvastatin Calcium (Lipitor) 80 mg PO HS [facility] Last Admin: 12/23/17 21:17 Dose: 80 mg Carbidopa/Levodopa (Sinemet) 1 tab PO BID [facility] Last Admin: 12/24/17 08:06 Dose: 1 tab Clopidogrel Bisulfate (Plavix) 75 mg PO QAM [facility] Last Admin: 12/24/17 08:08 Dose: 75 mg Glipizide (Glucotrol) 10 mg PO 0730,1630 [facility] Last Admin: 12/24/17 06:50 Dose: 10 mg Heparin Sodium (Porcine) (Heparin) 5,000 units SC Q8 [facility] PRN Reason: Protocol Last Admin: 12/24/17 06:50 Dose: 5,000 units Hydralazine HCl (Apresoline) 25 mg PO Q8 [facility] Last Admin: 12/24/17 06:50 Dose: 25 mg Insulin Detemir (Levemir) 30 units SC HS [facility] Last Admin: 12/23/17 21:34 Dose: 30 unit Insulin Human Lispro (Humalog) 0 units SC ACHS [facility] PRN Reason: Protocol Last Admin: 12/24/17 07:20 Dose: 1 units Insulin Human Lispro (Humalog) 6 units SC AC [facility] Last Admin: 12/24/17 07:18 Dose: 6 units Lactic Acid (Lac-Hydrin 12% Lotion (225 G)) 1 applic TOP TID [facility] Last Admin: 12/24/17 08:06 Dose: 1 applic Losartan Potassium (Cozaar) 50 mg PO DAILY [facility] Last Admin: 12/24/17 08:06 Dose: 50 mg Nicotine (Nicoderm Cq) 1 patch TD DAILY [facility] Last Admin: 12/24/17 08:06 Dose: 1 patch Oxycodone/Acetaminophen (Percocet 5/325 Mg Tab) 1 tab PO Q4 PRN PRN Reason: Pain scale 4-10. Stop: 12/25/17 15:12 Last Admin: 12/24/17 08:05 Dose: 1 tab Pantoprazole Sodium (Protonix Ec Tab) 40 mg PO ACB [facility] Last Admin: 12/24/17 06:50 Dose: 40 mg Pregabalin (Lyrica) 50 mg PO BID [facility] Last Admin: 12/24/17 08:06 Dose: 50 mg Primidone (Mysoline) 50 mg PO HS [facility] Last Admin: 12/23/17 21:35 Dose: 50 mg - Labs Labs: 12/19/17 05:20 12/19/17 05:20 - Head Exam Head Exam: ATRAUMATIC, NORMAL INSPECTION, NORMOCEPHALIC - Eye Exam Eye Exam: EOMI, Normal appearance, PERRL Pupil Exam: NORMAL ACCOMODATION - ENT Exam ENT Exam: Mucous Membranes Moist, Normal Exam - Respiratory Exam Respiratory Exam: NORMAL BREATHING PATTERN - Cardiovascular Exam Cardiovascular Exam: REGULAR RHYTHM - GI/Abdominal Exam GI & Abdominal Exam: Soft, Normal Bowel Sounds - Rectal Exam Rectal Exam: NORMAL INSPECTION - Exam External exam: NORMAL EXTERNAL EXAM - Extremities Exam Extremities Exam: Full ROM, Normal Capillary Refill, Normal Inspection - Back Exam Back Exam: NORMAL INSPECTION - Neurological Exam Neurological Exam: Alert, Awake - Psychiatric Exam Psychiatric exam: Normal Affect, Normal Mood - Skin Skin Exam: Dry Assessment and Plan (1) Below knee amputation status Assessment & Plan: skin is healing with bri, pt, ot rec at present Status: Acute (2) Complete below knee amputation of right lower extremity Status: Acute
[2017-12-24] MEDS: Insulin Detemir 100 Units/ml Inj SC SCH (21:50)
[2017-12-25] MEDS: Pantoprazole 40 mg EC Tab PO SCH (06:55)
[2017-12-25] MEDS: Insulin Lispro (humaLOG) 100 Units/ml Inj SC SCH ×7 (07:29→21:44)
[2017-12-25] MEDS: Insulin Detemir 100 Units/ml Inj SC SCH (21:44)
[2017-12-26] MEDS: Insulin Lispro (humaLOG) 100 Units/ml Inj SC SCH ×7 (06:38→21:09)
[2017-12-26] MEDS: Pantoprazole 40 mg EC Tab PO SCH (06:43)
[2017-12-26 11:48] LABS: HEMOGLOBIN 11.8 g/dL (12.0-18.0); MEAN CELL VOLUME 81.6 fl (80.0-94.0); MEAN CORPUSCULAR HGB CONC 33.1 g/dL (33.0-37.0); RBC 4.35 Mil/uL (4.40-5.90); RED CELL DISTRIBUTION WIDTH 15.4 % (11.5-14.5); WHITE BLOOD COUNT 6.6 K/uL (4.8-10.8)
--- NOTE | 2017-12-26 11:54 | CP.PCM.PN ---
Subjective - Date & Time of Evaluation Date of Evaluation: 12/26/17 Time of Evaluation: 10:45 - Subjective Subjective: Patient seen and examined. Denied any complaint except for mild soreness on the right stump which do not warrant pain medication. Objective - Vital Signs/Intake and Output Vital Signs (last 24 hours): Temp Pulse Resp BP Pulse Ox 97.7 F 60 22 142/52 L 95 12/26/17 08:10 12/26/17 08:40 12/26/17 08:10 12/26/17 08:40 12/26/17 08:10 - Medications Medications: Current Medications Acetaminophen (Tylenol 325mg Tab) 650 mg PO Q6H PRN PRN Reason: Pain, Mild (1-3) Atorvastatin Calcium (Lipitor) 80 mg PO [facility] Last Admin: 12/25/17 21:39 Dose: 80 mg Carbidopa/Levodopa (Sinemet) 1 tab PO BID [facility] Last Admin: 12/26/17 08:33 Dose: 1 tab Clopidogrel Bisulfate (Plavix) 75 mg PO QAM [facility] Last Admin: 12/26/17 08:37 Dose: 75 mg Glipizide (Glucotrol) 10 mg PO 0730,1630 [facility] Last Admin: 12/26/17 08:31 Dose: 10 mg Heparin Sodium (Porcine) (Heparin) 5,000 units SC Q8 [facility] PRN Reason: Protocol Last Admin: 12/26/17 05:33 Dose: 5,000 units Hydralazine HCl (Apresoline) 25 mg PO Q8 [facility] Last Admin: 12/26/17 05:34 Dose: 25 mg Insulin Detemir (Levemir) 30 units SC [facility] Last Admin: 12/25/17 21:44 Dose: 30 unit Insulin Human Lispro (Humalog) 0 units SC ACHS [facility] PRN Reason: Protocol Last Admin: 12/26/17 06:38 Dose: 1 units Insulin Human Lispro (Humalog) 6 units SC AC [facility] Last Admin: 12/26/17 08:29 Dose: 6 units Lactic Acid (Lac-Hydrin 12% Lotion (225 G)) 1 applic TOP TID [facility] Last Admin: 12/26/17 08:31 Dose: 1 applic Losartan Potassium (Cozaar) 50 mg PO DAILY [facility] Last Admin: 12/26/17 08:40 Dose: 50 mg Nicotine (Nicoderm Cq) 1 patch TD DAILY [facility] Last Admin: 12/26/17 08:31 Dose: 1 patch Pantoprazole Sodium (Protonix Ec Tab) 40 mg PO ACB [facility] Last Admin: 12/26/17 06:43 Dose: 40 mg Pregabalin (Lyrica) 50 mg PO BID [facility] Last Admin: 12/26/17 08:38 Dose: 50 mg Primidone (Mysoline) 50 mg PO HS [facility] Last Admin: 12/25/17 21:39 Dose: 50 mg - Labs Labs: 12/26/17 10:40 12/19/17 05:20 - Constitutional Appears: No Acute Distress - Head Exam Head Exam: ATRAUMATIC - Eye Exam Eye Exam: absent: Scleral icterus - ENT Exam ENT Exam: Mucous Membranes Moist - Neck Exam Neck Exam: absent: Meningismus - Respiratory Exam Respiratory Exam: absent: Rales, Rhonchi, Wheezes, Respiratory Distress - Cardiovascular Exam Cardiovascular Exam: REGULAR RHYTHM, +S1, +S2 - GI/Abdominal Exam GI & Abdominal Exam: Soft. absent: Tenderness - Rectal Exam Rectal Exam: Deferred - Extremities Exam Extremities Exam: absent: Full ROM (right leg stump wound, clean and dry without sign of inflammation) - Back Exam Back Exam: NORMAL INSPECTION - Neurological Exam Neurological Exam: Alert, Oriented x3 - Psychiatric Exam Psychiatric exam: Normal Affect - Skin Skin Exam: Dry, Intact Assessment and Plan - Assessment and Plan (Free Text) Assessment: 72 yo male with history of Parkinson's Disease, DM2, CAD, HTN, COPD, Sleep Apnea , PVD and Pacemaker for SSS had BKA of the right leg on 12/09/17 at [facility] because of gangrene of the left foot. He was transferred to [facility] and admitted at Acute Rehab for PT/OT. 1. Post Right BKA Dr Martinez on physiatry consult continue PT/OT on and off soreness on the stump not needing pain meds stump clean and dry without sign of infection 2. DM2 BS uncontrolled increase Lispro to 6 units SC AC increase Levemir 34 units SC HS continue Glucotrol 10mg PO BID 3. Parkinson's Disease continue Sinemet and Primidone 4. Sleep Apnea continue CPAP HS (patient has been refusing) 5. HTN BP stable but on the low side reduce Hydralazine 10mg PO q 8hrs Losartan 50mg PO daily 6. CAD continue Plavix and statin 7. DVT prophylaxis switch to Lovenox 40mg SC daily
[2017-12-26 12:19] LABS: BLOOD UREA NITROGEN 22 mg/dl (9-20); CALCIUM 9.4 mg/dL (8.4-10.2); GFR AFRICAN-AMERICAN > 60; GFR NON-AFRICAN AMERICAN > 60
[2017-12-26] MEDS: Enoxaparin 40 mg Syringe SC SCH (16:51)
[2017-12-26] MEDS: Insulin Detemir 100 Units/ml Inj SC SCH (21:40)
[2017-12-27] MEDS: Insulin Lispro (humaLOG) 100 Units/ml Inj SC SCH ×7 (06:48→21:00)
[2017-12-27] MEDS: Pantoprazole 40 mg EC Tab PO SCH (06:50)
[2017-12-27] MEDS: Enoxaparin 40 mg Syringe SC SCH (08:32)
[2017-12-27] MEDS ORDERED: Enoxaparin 40 mg Syringe SC SCH (09:00)
[2017-12-27 13:11] LABS: MEAN CORPUSCULAR HEMOGLOBIN 27.1 pg (27.0-31.0); MEAN CORPUSCULAR HGB CONC 33.1 g/dL (33.0-37.0); RBC 4.44 Mil/uL (4.40-5.90); RED CELL DISTRIBUTION WIDTH 15.4 % (11.5-14.5)
--- NOTE | 2017-12-27 15:13 | PN ---
DATE: PHYSIATRY PROGRESS NOTE SUBJECTIVE: The patient is feeling fine. No acute complaints of any stump pain. PHYSICAL EXAMINATION: VITAL SIGNS: Stable. NECK: Supple. CHEST: Symmetrical. HEART: Sounds S1 and S2. ABDOMEN: Benign. EXTREMITIES: No clubbing, cyanosis or edema. IMPRESSION AND PLAN: Right below-knee amputation, cerebrovascular accident, Parkinson's, diabetes, and chronic obstructive pulmonary disease. The patient for physical, occupational therapy, full range of motion, strengthening, transfers, ambulation, gait training for stump treatment and healing. The patient with bri in the stump, mild redness in the corner, applying Bactroban. Continue to monitor the stump incisional site and dressing for twice a day. Edmond Mittal MD
[2017-12-27] MEDS: Insulin Detemir 100 Units/ml Inj SC SCH (21:41)
[2017-12-28] MEDS: Pantoprazole 40 mg EC Tab PO SCH (06:58)
[2017-12-28] MEDS: Insulin Lispro (humaLOG) 100 Units/ml Inj SC SCH ×7 (08:08→21:00)
[2017-12-28] MEDS: Enoxaparin 40 mg Syringe SC SCH (08:09)
--- NOTE | 2017-12-28 12:05 | PSY.TMCNF ---
Nursing - Vital Signs Vital Signs (Last 8 hours): Vital Signs 12/28/17 12/28/17 12/28/17 05:19 08:06 08:49 Temperature 98.2 F Pulse Rate 65 68 68 Respiratory 20 Rate Blood Pressure 136/67 117/65 117/65 O2 Sat by Pulse 96 Oximetry Pain: 0 - Precautions: Isolation: Contact - Medications/Other Issues Comment: Pt at high nutritional risk. goals: 1. Consume 75-100% at mealtimes( met, continue). 2. Maintain good glycemic control:GLU:70-180mg/dl(not met, continue)(terminal supervisor goal-HgbA1C to trend downward). Follow-up due on 12/29 - Skin Incision Site: Right BKA stump with colton Dressing Status: Changed Incision: Colton Intact Incision Line Treatment: Cleanse with NS then apply xeroform gauze and cover with dry dressing. - Toileting Toileting: Minimal Assistance - Bladder Management Bladder Pattern: Normal Voiding Method: Toilet - Bowel Management Bowel Pattern: Normal Bowel Management: Moderate Assistance Frequency of Accidents: none - Transfers Transfers: Minimal Assistance - ADL's ADL's: Minimal Assistance - Pain Management Comments: denies - Patient/Family Teaching Comments: safety measures - Goals/Time Frame Comments: fall prevention - Provider Provider: YARELIS Gee,CRRN Physical Therapy - Bed Mobility Comment: mod A for supine to sit. CGA for sit to supine - Transfers Wheelchair to Mat: Verbal Cues, Contact Guard Sit to Stand: Supervision, Verbal Cues - Ambulation Level of Assistance: Verbal Cues, Contact Guard Distance (ft.): 50 Assistive Devices: Rolling Walker - Stair Negotiation Stairs: Level of Assistance: Not Tested - Standing Balance Static Stand: Contact Guard Assist Dynamic Stand: Single leg stance, Contact Guard Assist - Pain Comment: occasional R residual limb pain, reports < 2-3/10 - Insight/Carryover Insight/Carryover: Good - Patient/Family Education Comment: Pt education provided for increased safety awareness and proper techniques during functional mobility training. Initiated caregiver training with pts daughter, Anne, for R residual limb management and wrapping techniques - Assessment/Plan Assessment: Pt actively participating in PT tx sessions focusing on BLE strengthening and ROM exercises, and functional mobility training. Pt currently requires CGA to mod A for bed mobility., close S/CGA for transfers, and CGA for ambulation with RW. Pt will continue to benefit from skilled PT itnervention to address deficits, reduce fall risk, and maximize functional independence. - Goals Timeframe: 2 weeks Goals: Sit < > supine mod I. Sit < > stand mod I with RW. Bed < > chair transfers mod I with RW. Pt heydi ambulate 50 ft mod I with RW. Pt will recall HEP, signs of infection, and contracture management (I) - Provider Therapist: izabella License Number: [id number] Occupational Therapy - Arousal/Attention/Orientation Patient Orientation: Person, Place, Time, Appropriate to Age, Appropriate to Situation - ADL/IADL Self Feeding: Set-up Help Grooming: Supervision, Set-up Help Bathing-Upper Extremity: Supervision, Verbal Cues, Set-up Help Bathing-Lower Extremity: Verbal Cues, Set-up Help, Minimal Assistance Dressing-Upper Extremity: Independent, Set-up Help Dressing-Lower Extremity: Supervision, Verbal Cues, Set-up Help Homemaking: Verbal Cues, Set-up Help, Minimal Assistance Comment: w/c level - Sitting Balance Static Sitting: Independent without upper extremity support Dynamic Sitting: Reaches across midline, Reaches out of base of support, Reaches within base of support, Requires supervision Comment: seated at edge of bed - Transfers Wheelchair to Bed Transfers: Supervision, Verbal Cues, Set-up Help, Contact Guard Toilet Transfers: Supervision, Verbal Cues, Set-up Help, Contact Guard Comment: shower transfers: CG/Min assist & verbal cues -due to slippery surfaces - Wheelchair Management Level of Assistance: Modified Independent Distance (ft.): 150 - Upper Extremity Status Right Upper Extremity Comment: resting tremors BUES; A/PROM is WNLs Left Upper Extremity Comment: resting tremors BUES; \A/PROM is WNLs - Pain Comment: occasional R residual limb pain, reports < 2-3/10 - Insight/Carryover Insight/Carryover: Good - Patient/Family Education Comment: Pt education provided for increased safety awareness and proper techniques during functional mobility training. Initiated caregiver training with pts daughterAnne, for R residual limb management and wrapping techniques - Assessment/Plan Assessment: Pt actively participating in PT tx sessions focusing on BLE strengthening and ROM exercises, and functional mobility training. Pt currently requires CGA to mod A for bed mobility., close S/CGA for transfers, and CGA for ambulation with RW. Pt will continue to benefit from skilled PT itnervention to address deficits, reduce fall risk, and maximize functional independence. - Goals Timeframe: 2 weeks Goals: Sit < > supine mod I. Sit < > stand mod I with RW. Bed < > chair transfers mod I with RW. Pt heydi ambulate 50 ft mod I with RW. Pt will recall HEP, signs of infection, and contracture management (I) - Provider Therapist: Jacqui Olivier, OTR/L License Number: [id number] Speech Therapy - Plan Assessment: Pt actively participating in PT tx sessions focusing on BLE strengthening and ROM exercises, and functional mobility training. Pt currently requires CGA to mod A for bed mobility., close S/CGA for transfers, and CGA for ambulation with RW. Pt will continue to benefit from skilled PT itnervention to address deficits, reduce fall risk, and maximize functional independence. Recreational Therapy - Participation Participation: Participates in Individual and/or Group Sessions - Attendance Attendance: 3-5 times per week - Activities Leisure Activities: Cards and Games - Socialization Level of Socialization: Initiates/interacts freely with care givers and peer - Diversional Time Diversional Time: watching television, socializing - Assessment Assessment/Plan: Pt actively participating in PT tx sessions focusing on BLE strengthening and ROM exercises, and functional mobility training. Pt currently requires CGA to mod A for bed mobility., close S/CGA for transfers, and CGA for ambulation with RW. Pt will continue to benefit from skilled PT itnervention to address deficits, reduce fall risk, and maximize functional independence. - Provider Therapist: Veda Vann, MAINTENANCE INSPECTOR #[id number] Nutrition - Current Diet Current Diet/ Supplement/ Feedings: Moderate consistent CHO heart heatlhy soft diet - Appetite Percent Meal Consumed: 75-100% - Comments Comments: safety measures - Assessment/Goals/Time Frame Assessment/Goals/Time Frame: Pt at high nutritional risk. goals: 1. Consume 75- 100% at mealtimes(met, continue). 2. Maintain good glycemic control:GLU:70- 180mg/dl(not met,continue)(detention goal-HgbA1C to trend downward). Follow-up due on 12/29 - Provider Provider: Helena Joya RD Case Management - Psychosocial Assessment Support Systems: Lives alone and has 5 children; Daughter Anne is primary contact and lives in [place] [phone] Psychological Interventions/Needs: Pt is alert and oriented, but noted to have premorbid mild forgetfulness and mild cognitive limitations (ie patient has never written a check; unable to name who current president is) Patient/Family Meeting: CM met with pt, daughter (with pt's consent) and rehab team Intervention/Goal/Outcome:: 1. GOAL: Modified Independent at a wheelchair level (pt has a motorized wchr but will require standard wchr as well as RW and transfer tub bench); will confirme measurements of standard wchr with OT 2. Plan : D/C 01/01/18 home with skilled homecare 3. Will schedule training with virginia Rodríguez for next week 4. Rehab team referred to [facility] for prosthetic needs 5. Continued stay authorization LAD 12/22/17; will send updates - Discharge Plan Discharge Plan: Home alone Home Services: [facility] - Provider Provider: CHI Chou, ASSEMBLER [employer] License Number: [id number] Rehabilitation Plan - Treatment Plan Treatment Plan: Physical Therapy, Occupational Therapy - Recommendation Recommendation: Physical Therapy, Occupational Therapy, Dietary, Patient/Family Education [X]: Wound Care - Discharge Plan Discharge to: Home (Dc tuesday)
--- NOTE | 2017-12-28 12:40 | CP.PCM.PN ---
Subjective - Date & Time of Evaluation Date of Evaluation: 12/28/17 Time of Evaluation: 08:00 - Subjective Subjective: no acute stump pain Objective - Vital Signs/Intake and Output Vital Signs (last 24 hours): Temp Pulse Resp BP Pulse Ox 98.2 F 68 20 117/65 96 12/28/17 08:49 12/28/17 08:49 12/28/17 08:49 12/28/17 08:49 12/28/17 08:49 - Medications Medications: Current Medications Acetaminophen (Tylenol 325mg Tab) 650 mg PO Q6H PRN PRN Reason: pain 1-10 Atorvastatin Calcium (Lipitor) 80 mg PO HS [facility] Last Admin: 12/27/17 21:41 Dose: 80 mg Carbidopa/Levodopa (Sinemet) 1 tab PO BID [facility] Last Admin: 12/28/17 08:12 Dose: 1 tab Clopidogrel Bisulfate (Plavix) 75 mg PO QAM [facility] Last Admin: 12/28/17 08:14 Dose: 75 mg Enoxaparin Sodium (Lovenox) 40 mg SC DAILY [facility] PRN Reason: Protocol Last Admin: 12/28/17 08:09 Dose: 40 mg Glipizide (Glucotrol) 10 mg PO 0730,1630 [facility] Last Admin: 12/28/17 06:58 Dose: 10 mg Hydralazine HCl (Apresoline) 10 mg PO Q8 [facility] Last Admin: 12/28/17 05:19 Dose: 10 mg Insulin Detemir (Levemir) 34 units SC HS [facility] Last Admin: 12/27/17 21:41 Dose: 34 units Insulin Human Lispro (Humalog) 0 units SC ACHS [facility] PRN Reason: Protocol Last Admin: 12/28/17 12:19 Dose: 3 units Insulin Human Lispro (Humalog) 6 units SC AC [facility] Last Admin: 12/28/17 12:19 Dose: 6 units Lactic Acid (Lac-Hydrin 12% Lotion (225 G)) 1 applic TOP TID [facility] Last Admin: 12/28/17 12:20 Dose: 1 applic Losartan Potassium (Cozaar) 50 mg PO DAILY [facility] Last Admin: 12/28/17 08:06 Dose: 50 mg Mupirocin (Bactroban Ointment) 1 applic TOP 0900,2100 [facility] Last Admin: 12/28/17 08:15 Dose: 1 applic Nicotine (Nicoderm Cq) 1 patch TD DAILY [facility] Last Admin: 12/28/17 08:10 Dose: 1 patch Pantoprazole Sodium (Protonix Ec Tab) 40 mg PO ACB [facility] Last Admin: 12/28/17 06:58 Dose: 40 mg Pregabalin (Lyrica) 50 mg PO BID [facility] Last Admin: 12/28/17 08:14 Dose: 50 mg Primidone (Mysoline) 50 mg PO HS [facility] Last Admin: 12/27/17 21:41 Dose: 50 mg - Labs Labs: 12/27/17 12:04 12/26/17 10:40 - Head Exam Head Exam: ATRAUMATIC, NORMAL INSPECTION, NORMOCEPHALIC - Eye Exam Eye Exam: EOMI, Normal appearance, PERRL Pupil Exam: NORMAL ACCOMODATION - ENT Exam ENT Exam: Mucous Membranes Moist, Normal Exam - Neck Exam Neck Exam: Normal Inspection - Respiratory Exam Respiratory Exam: NORMAL BREATHING PATTERN - Cardiovascular Exam Cardiovascular Exam: REGULAR RHYTHM - Exam External exam: NORMAL EXTERNAL EXAM - Extremities Exam Extremities Exam: Full ROM, Normal Capillary Refill, Normal Inspection - Back Exam Back Exam: NORMAL INSPECTION - Neurological Exam Neurological Exam: Alert, Awake Neuro motor strength exam: Left Upper Extremity: 4, Right Upper Extremity: 4, Left Lower Extremity: 4, Right Lower Extremity: 3 - Psychiatric Exam Psychiatric exam: Normal Affect, Normal Mood - Skin Skin Exam: Dry, Intact Assessment and Plan (1) Below knee amputation status Assessment & Plan: plan for stump desensitization and wraping and shaping pt ot [place] post team conference Status: Acute (2) Complete below knee amputation of right lower extremity Status: Acute
--- NOTE | 2017-12-28 13:31 | CP.PCM.CON ---
History of Present Illness - History of Present Illness History of Present Illness: SURGERY CONSULT NOTE FOR DR. EGAN 72M presents to rehab for physical therapy. Consult is for follow up, patient had a right BKA december 09 in [place]. Post op has been uneventful. Patient did fall at home but has no acute injuries. Denies fevers, chills. Working well with physical therapy. Past medical history of parkinson. Past Patient History - Infectious Disease Hx of Infectious Diseases: None - Tetanus Immunizations Tetanus Immunization: Unknown - Past Medical History & Family History Past Medical History?: Yes Past Family History: Reviewed and not pertinent - Past Social History Smoking Status: Heavy Smoker > 10 Cigarettes Daily Chewing Tobacco Use: No Cigar Use: No Alcohol: Occasional Drugs: Denies Home Situation {Lives}: Alone - CARDIAC Hx Hypercholesterolemia: Yes Hx Hypertension: Yes - PULMONARY Hx Chronic Obstructive Pulmonary Disease (COPD): Yes - NEUROLOGICAL Hx Parkinson's Disease: Yes - ENDOCRINE/METABOLIC Hx Diabetes Mellitus Type 2: Yes - HEMATOLOGICAL/ONCOLOGICAL Hx AIDS: No Hx Human Immunodeficiency Virus (HIV): No - MUSCULOSKELETAL/RHEUMATOLOGICAL Hx Back Pain: Yes (lumbar disc herniation ) Hx Falls: No - PSYCHIATRIC Hx Substance Use: No - SURGICAL HISTORY Hx Surgeries: Yes Hx Amputation: Yes Hx Angiogram: Yes Hx Angioplasty: Yes Hx Cataract Extraction: Yes Hx Cardiac Catheterization: Yes Other/Comment: HX of CVAx3, Parkinsons , CAD with pacemaker - ANESTHESIA Hx Anesthesia Reactions: No Meds Allergies/Adverse Reactions: Allergies Allergy/AdvReac Type Severity Reaction Status Date / Time No Known Allergies Allergy Verified 12/16/17 16:28 - Medications Medications: Current Medications Acetaminophen (Tylenol 325mg Tab) 650 mg PO Q6H PRN PRN Reason: pain 1-10 Atorvastatin Calcium (Lipitor) 80 mg PO HS [facility] Last Admin: 12/27/17 21:41 Dose: 80 mg Carbidopa/Levodopa (Sinemet) 1 tab PO BID [facility] Last Admin: 12/28/17 08:12 Dose: 1 tab Clopidogrel Bisulfate (Plavix) 75 mg PO QAM [facility] Last Admin: 12/28/17 08:14 Dose: 75 mg Enoxaparin Sodium (Lovenox) 40 mg SC DAILY [facility] PRN Reason: Protocol Last Admin: 12/28/17 08:09 Dose: 40 mg Glipizide (Glucotrol) 10 mg PO 0730,1630 [facility] Last Admin: 12/28/17 06:58 Dose: 10 mg Hydralazine HCl (Apresoline) 10 mg PO Q8 [facility] Last Admin: 12/28/17 05:19 Dose: 10 mg Insulin Detemir (Levemir) 34 units SC HS [facility] Last Admin: 12/27/17 21:41 Dose: 34 units Insulin Human Lispro (Humalog) 0 units SC ACHS [facility] PRN Reason: Protocol Last Admin: 12/28/17 12:19 Dose: 3 units Insulin Human Lispro (Humalog) 6 units SC AC [facility] Last Admin: 12/28/17 12:19 Dose: 6 units Lactic Acid (Lac-Hydrin 12% Lotion (225 G)) 1 applic TOP TID [facility] Last Admin: 12/28/17 12:20 Dose: 1 applic Losartan Potassium (Cozaar) 50 mg PO DAILY [facility] Last Admin: 12/28/17 08:06 Dose: 50 mg Mupirocin (Bactroban Ointment) 1 applic TOP 0900,2100 [facility] Last Admin: 12/28/17 08:15 Dose: 1 applic Nicotine (Nicoderm Cq) 1 patch TD DAILY [facility] Last Admin: 12/28/17 08:10 Dose: 1 patch Pantoprazole Sodium (Protonix Ec Tab) 40 mg PO ACB [facility] Last Admin: 12/28/17 06:58 Dose: 40 mg Pregabalin (Lyrica) 50 mg PO BID [facility] Last Admin: 12/28/17 08:14 Dose: 50 mg Primidone (Mysoline) 50 mg PO [facility] Last Admin: 12/27/17 21:41 Dose: 50 mg Physical Exam - Constitutional Appears: Well, Non-toxic, No Acute Distress - Head Exam Head Exam: ATRAUMATIC - Eye Exam Eye Exam: EOMI, PERRL - Respiratory Exam Respiratory Exam: Clear to Auscultation Bilateral, NORMAL BREATHING PATTERN - Cardiovascular Exam Cardiovascular Exam: REGULAR RHYTHM, +S1, +S2 - GI/Abdominal Exam GI & Abdominal Exam: Soft. absent: Distended, Firm, Mass, Rebound, Rigid, Tenderness - Extremities Exam Additional comments: right BKA dressing clean dry intact bri in place no drainage from incision - Neurological Exam Neurological exam: Alert, Oriented x3 - Skin Skin Exam: Dry, Intact, Normal Color, Warm Results - Vital Signs Recent Vital Signs: Last Vital Signs Temp 98.2 F 12/28/17 08:49 Pulse 68 12/28/17 08:49 Resp 20 12/28/17 08:49 BP 117/65 12/28/17 08:49 Pulse Ox 96 12/28/17 08:49 - Labs Result Diagrams: 12/27/17 12:04 12/26/17 10:40 Labs: Laboratory Results - last 24 hr 12/27/17 12/27/17 12/28/17 16:06 20:56 06:56 POC Glucose (mg/dL) 204 H 189 H 171 H 12/28/17 11:42 POC Glucose (mg/dL) 289 H Assessment & Plan - Assessment and Plan (Free Text) Assessment: 72M s/p BKA, operation was last month Patient currently working with physical therapy Plan: - removed every other staple - continue physical therapy Futher recs discuss with Dr. Aj Desir, PGY2
--- NOTE | 2017-12-28 13:46 | CP.PCM.PN ---
Subjective - Date & Time of Evaluation Date of Evaluation: 12/28/17 Time of Evaluation: 10:00 - Subjective Subjective: Patient seen and examined while having physical therapy. In good spirits. States that he feels great. No complaints. HD stable, NAD. Objective - Vital Signs/Intake and Output Vital Signs (last 24 hours): Temp Pulse Resp BP Pulse Ox 98.2 F 68 20 117/65 96 12/28/17 08:49 12/28/17 08:49 12/28/17 08:49 12/28/17 08:49 12/28/17 08:49 - Medications Medications: Current Medications Acetaminophen (Tylenol 325mg Tab) 650 mg PO Q6H PRN PRN Reason: pain 1-10 Atorvastatin Calcium (Lipitor) 80 mg PO [facility] Last Admin: 12/27/17 21:41 Dose: 80 mg Carbidopa/Levodopa (Sinemet) 1 tab PO BID [facility] Last Admin: 12/28/17 08:12 Dose: 1 tab Clopidogrel Bisulfate (Plavix) 75 mg PO QAM [facility] Last Admin: 12/28/17 08:14 Dose: 75 mg Enoxaparin Sodium (Lovenox) 40 mg SC DAILY [facility] PRN Reason: Protocol Last Admin: 12/28/17 08:09 Dose: 40 mg Glipizide (Glucotrol) 10 mg PO 0730,1630 [facility] Last Admin: 12/28/17 06:58 Dose: 10 mg Hydralazine HCl (Apresoline) 10 mg PO Q8 [facility] Last Admin: 12/28/17 05:19 Dose: 10 mg Insulin Detemir (Levemir) 34 units SC [facility] Last Admin: 12/27/17 21:41 Dose: 34 units Insulin Human Lispro (Humalog) 0 units SC ACHS [facility] PRN Reason: Protocol Last Admin: 12/28/17 12:19 Dose: 3 units Insulin Human Lispro (Humalog) 6 units SC AC [facility] Last Admin: 12/28/17 12:19 Dose: 6 units Lactic Acid (Lac-Hydrin 12% Lotion (225 G)) 1 applic TOP TID [facility] Last Admin: 12/28/17 12:20 Dose: 1 applic Losartan Potassium (Cozaar) 50 mg PO DAILY [facility] Last Admin: 12/28/17 08:06 Dose: 50 mg Mupirocin (Bactroban Ointment) 1 applic TOP 0900,2100 [facility] Last Admin: 12/28/17 08:15 Dose: 1 applic Nicotine (Nicoderm Cq) 1 patch TD DAILY [facility] Last Admin: 12/28/17 08:10 Dose: 1 patch Pantoprazole Sodium (Protonix Ec Tab) 40 mg PO ACB [facility] Last Admin: 12/28/17 06:58 Dose: 40 mg Pregabalin (Lyrica) 50 mg PO BID [facility] Last Admin: 12/28/17 08:14 Dose: 50 mg Primidone (Mysoline) 50 mg PO HS [facility] Last Admin: 12/27/17 21:41 Dose: 50 mg - Labs Labs: 12/27/17 12:04 12/26/17 10:40 - Additional Findings Additional findings: Physical exam: Constitutional- cooperative, awake, alert Head- NCAT, PERRL Eye- PERRL, EOMI ENT- normal exam, MMM. Neck- normal inspection, supple, no JVD Respiratory- CTAB, no wheezes rales rhonchi Cardiovascular- RRR, +S1, +S2 no MRG GI/Abdominal- normal bowel sounds, soft, no mass, no hsm Skin- warm, dry. + tattoos Extremities Exam-R BKA, stump dressed by surgery team, bandage c/d/i. Normal capillary refill, normal inspection other 3 extremities Neurological Exam- alert, awake, oriented Psych- normal mood, normal affect Assessment and Plan - Assessment and Plan (Free Text) Plan: Assessment: 72 yo male with history of Parkinson's Disease, DM2, CAD, HTN, COPD, Sleep Apnea , PVD and Pacemaker for SSS had BKA of the right leg on 12/09/17 at [facility] because of gangrene of the left foot. He was transferred to [facility] and admitted at Acute Rehab for PT/OT. 1. Post Right BKA Dr Martinez on physiatry consult continue PT/OT on and off soreness on the stump not needing pain meds stump clean and dry without sign of infection Seen by surgery team today, Dr. Rocha on consultation 2. DM2 BS uncontrolled increase Lispro to 6 units SC AC increase Levemir 34 units SC HS continue Glucotrol 10mg PO BID 3. Parkinson's Disease continue Sinemet and Primidone 4. Sleep Apnea continue CPAP HS (patient has been refusing) 5. HTN BP stable but on the low side continue Hydralazine 10mg PO q 8hrs Losartan 50mg PO daily 6. CAD continue Plavix and statin 7. DVT prophylaxis switch to Lovenox 40mg SC daily
[2017-12-28] MEDS: Insulin Detemir 100 Units/ml Inj SC SCH (22:00)
[2017-12-29] MEDS: Pantoprazole 40 mg EC Tab PO SCH (07:03)
[2017-12-29] MEDS: Insulin Lispro (humaLOG) 100 Units/ml Inj SC SCH ×7 (07:42→21:47)
[2017-12-29] MEDS: Enoxaparin 40 mg Syringe SC SCH (08:11)
[2017-12-29] MEDS: Insulin Detemir 100 Units/ml Inj SC SCH (21:54)
[2017-12-30 06:40] LABS: HEMOGLOBIN 11.7 g/dL (12.0-18.0); MEAN CELL VOLUME 83.1 fl (80.0-94.0); MEAN CORPUSCULAR HEMOGLOBIN 27.2 pg (27.0-31.0); MEAN CORPUSCULAR HGB CONC 32.8 g/dL (33.0-37.0); RBC 4.28 Mil/uL (4.40-5.90); RED CELL DISTRIBUTION WIDTH 15.6 % (11.5-14.5); WHITE BLOOD COUNT 5.9 K/uL (4.8-10.8)
[2017-12-30 06:54] LABS: ALBUMIN 3.6 g/dL (3.5-5.0); ALT/SGPT 32 U/L (21-72); AST/SGOT 24 U/L (17-59); BLOOD UREA NITROGEN 24 mg/dl (9-20); CALCIUM 9.3 mg/dL (8.4-10.2); GFR AFRICAN-AMERICAN > 60; GFR NON-AFRICAN AMERICAN > 60
[2017-12-30] MEDS: Pantoprazole 40 mg EC Tab PO SCH (07:17)
[2017-12-30] MEDS: Insulin Lispro (humaLOG) 100 Units/ml Inj SC SCH ×7 (08:10→21:59)
[2017-12-30] MEDS: Enoxaparin 40 mg Syringe SC SCH (08:11)
--- NOTE | 2017-12-30 11:52 | CP.PCM.PN ---
Subjective - Date & Time of Evaluation Date of Evaluation: 12/30/17 Time of Evaluation: 08:30 - Subjective Subjective: no acute stump pain Objective - Vital Signs/Intake and Output Vital Signs (last 24 hours): Temp Pulse Resp BP Pulse Ox 97.5 F L 61 18 134/67 98 12/30/17 07:59 12/30/17 08:09 12/30/17 07:59 12/30/17 08:09 12/30/17 07:59 - Medications Medications: Current Medications Acetaminophen (Tylenol 325mg Tab) 650 mg PO Q6H PRN PRN Reason: pain 1-10 Atorvastatin Calcium (Lipitor) 80 mg PO HS [facility] Last Admin: 12/29/17 21:40 Dose: 80 mg Carbidopa/Levodopa (Sinemet) 1 tab PO BID [facility] Last Admin: 12/30/17 08:12 Dose: 1 tab Clopidogrel Bisulfate (Plavix) 75 mg PO QAM [facility] Last Admin: 12/30/17 08:12 Dose: 75 mg Enoxaparin Sodium (Lovenox) 40 mg SC DAILY [facility] PRN Reason: Protocol Last Admin: 12/30/17 08:11 Dose: 40 mg Glipizide (Glucotrol) 10 mg PO 0730,1630 [facility] Last Admin: 12/30/17 07:17 Dose: 10 mg Hydralazine HCl (Apresoline) 10 mg PO Q8 [facility] Last Admin: 12/30/17 07:00 Dose: 10 mg Insulin Detemir (Levemir) 34 units SC HS [facility] Last Admin: 12/29/17 21:54 Dose: 34 units Insulin Human Lispro (Humalog) 0 units SC ACHS [facility] PRN Reason: Protocol Last Admin: 12/30/17 08:10 Dose: 2 units Insulin Human Lispro (Humalog) 6 units SC AC [facility] Last Admin: 12/30/17 08:10 Dose: 6 units Lactic Acid (Lac-Hydrin 12% Lotion (225 G)) 1 applic TOP TID [facility] Last Admin: 12/30/17 08:10 Dose: 1 applic Losartan Potassium (Cozaar) 50 mg PO DAILY [facility] Last Admin: 12/30/17 08:09 Dose: 50 mg Mupirocin (Bactroban Ointment) 1 applic TOP 0900,2100 [facility] Last Admin: 12/30/17 08:08 Dose: 1 applic Nicotine (Nicoderm Cq) 1 patch TD DAILY [facility] Last Admin: 12/30/17 08:12 Dose: 1 patch Pantoprazole Sodium (Protonix Ec Tab) 40 mg PO ACB [facility] Last Admin: 12/30/17 07:17 Dose: 40 mg Pregabalin (Lyrica) 50 mg PO BID [facility] Last Admin: 12/30/17 08:15 Dose: 50 mg Primidone (Mysoline) 50 mg PO HS [facility] Last Admin: 12/29/17 21:39 Dose: 50 mg - Labs Labs: 12/30/17 06:00 12/30/17 06:00 - Head Exam Head Exam: ATRAUMATIC, NORMAL INSPECTION, NORMOCEPHALIC - Eye Exam Eye Exam: EOMI, Normal appearance, PERRL Pupil Exam: NORMAL ACCOMODATION - ENT Exam ENT Exam: Mucous Membranes Moist, Normal Exam - Neck Exam Neck Exam: Normal Inspection - Respiratory Exam Respiratory Exam: NORMAL BREATHING PATTERN - Cardiovascular Exam Cardiovascular Exam: REGULAR RHYTHM - GI/Abdominal Exam GI & Abdominal Exam: Soft, Normal Bowel Sounds - Rectal Exam Rectal Exam: NORMAL INSPECTION - Exam External exam: NORMAL EXTERNAL EXAM - Extremities Exam Extremities Exam: Full ROM, Normal Capillary Refill, Normal Inspection Additional comments: righ tbKa left foot stable - Back Exam Back Exam: NORMAL INSPECTION - Neurological Exam Neurological Exam: Alert, Awake Neuro motor strength exam: Left Upper Extremity: 4, Right Upper Extremity: 4, Left Lower Extremity: 4, Right Lower Extremity: 3 (Right BKa ) - Psychiatric Exam Psychiatric exam: Normal Affect, Normal Mood - Skin Skin Exam: Dry, Intact Assessment and Plan (1) Below knee amputation status Assessment & Plan: plan for physical, occupational, therapy program son did family training with therapists podiatry for toe nail car of left foot Status: Acute (2) Complete below knee amputation of right lower extremity Status: Acute
--- NOTE | 2017-12-30 15:41 | CP.PCM.CON ---
History of Present Illness - History of Present Illness History of Present Illness: 72 y/o male with PMHx of parkinsonism, IDDM, HTN, Dyslipidemia, CAD ,obesity, COPD ,sleep apnea on CPAP, PAD with multiple stents and right fem-pop bypass, SSS s/p pacemaker placement seen at bedside for thickened elongated toenails of left foot. Pt says he normally gets nail care by Dr. Tang in [place]. States he was admitted to the hospital because of poor blood supply to the right limb, and had a below knee amputation done at [place] prior to coming here. States his nails are thick and sometimes painful. Denies F/C/N/V/CP/SOB Review of Systems - Review of Systems All systems: reviewed and no additional remarkable complaints except (per HPI) Past Patient History - Infectious Disease Hx of Infectious Diseases: None - Tetanus Immunizations Tetanus Immunization: Unknown - Past Medical History & Family History Past Medical History?: Yes Past Family History: Reviewed and not pertinent - Past Social History Smoking Status: Heavy Smoker > 10 Cigarettes Daily Chewing Tobacco Use: No Cigar Use: No Alcohol: Occasional Drugs: Denies Home Situation {Lives}: Alone - CARDIAC Hx Hypercholesterolemia: Yes Hx Hypertension: Yes - PULMONARY Hx Chronic Obstructive Pulmonary Disease (COPD): Yes - NEUROLOGICAL Hx Parkinson's Disease: Yes - ENDOCRINE/METABOLIC Hx Diabetes Mellitus Type 2: Yes - HEMATOLOGICAL/ONCOLOGICAL Hx AIDS: No Hx Human Immunodeficiency Virus (HIV): No - MUSCULOSKELETAL/RHEUMATOLOGICAL Hx Back Pain: Yes (lumbar disc herniation ) Hx Falls: No - PSYCHIATRIC Hx Substance Use: No - SURGICAL HISTORY Hx Surgeries: Yes Hx Amputation: Yes Hx Angiogram: Yes Hx Angioplasty: Yes Hx Cataract Extraction: Yes Hx Cardiac Catheterization: Yes Other/Comment: HX of CVAx3, Parkinsons , CAD with pacemaker - ANESTHESIA Hx Anesthesia Reactions: No Meds Allergies/Adverse Reactions: Allergies Allergy/AdvReac Type Severity Reaction Status Date / Time No Known Allergies Allergy Verified 12/16/17 16:28 - Medications Medications: Current Medications Acetaminophen (Tylenol 325mg Tab) 650 mg PO Q6H PRN PRN Reason: pain 1-10 Atorvastatin Calcium (Lipitor) 80 mg PO HS [facility] Last Admin: 12/29/17 21:40 Dose: 80 mg Carbidopa/Levodopa (Sinemet) 1 tab PO BID [facility] Last Admin: 12/30/17 08:12 Dose: 1 tab Clopidogrel Bisulfate (Plavix) 75 mg PO QAM [facility] Last Admin: 12/30/17 08:12 Dose: 75 mg Enoxaparin Sodium (Lovenox) 40 mg SC DAILY [facility] PRN Reason: Protocol Last Admin: 12/30/17 08:11 Dose: 40 mg Glipizide (Glucotrol) 10 mg PO 0730,1630 [facility] Last Admin: 12/30/17 07:17 Dose: 10 mg Hydralazine HCl (Apresoline) 10 mg PO Q8 [facility] Last Admin: 12/30/17 15:14 Dose: Not Given Insulin Detemir (Levemir) 34 units SC HS [facility] Last Admin: 12/29/17 21:54 Dose: 34 units Insulin Human Lispro (Humalog) 0 units SC ACHS [facility] PRN Reason: Protocol Last Admin: 12/30/17 12:06 Dose: 2 units Insulin Human Lispro (Humalog) 6 units SC AC [facility] Last Admin: 12/30/17 12:07 Dose: 6 units Lactic Acid (Lac-Hydrin 12% Lotion (225 G)) 1 applic TOP TID [facility] Last Admin: 12/30/17 12:07 Dose: 1 applic Losartan Potassium (Cozaar) 50 mg PO DAILY [facility] Last Admin: 12/30/17 08:09 Dose: 50 mg Mupirocin (Bactroban Ointment) 1 applic TOP 0900,2100 [facility] Last Admin: 12/30/17 08:08 Dose: 1 applic Nicotine (Nicoderm Cq) 1 patch TD DAILY [facility] Last Admin: 12/30/17 08:12 Dose: 1 patch Pantoprazole Sodium (Protonix Ec Tab) 40 mg PO ACB [facility] Last Admin: 12/30/17 07:17 Dose: 40 mg Pregabalin (Lyrica) 50 mg PO BID [facility] Last Admin: 12/30/17 08:15 Dose: 50 mg Primidone (Mysoline) 50 mg PO HS [facility] Last Admin: 12/29/17 21:39 Dose: 50 mg Physical Exam - Constitutional Appears: Well, Non-toxic, No Acute Distress - Extremities Exam Additional comments: Right BKA LLE focused: Vasc: DP/PT pulses 1/4, temperature gradient warm to cool, CFT < 3sec to all digits Derm: thickened elongated dystrophic toenails x5 with subungual debris. No open lesions, no erythema, no ecchymosis Neuro: Protective sensation grossly diminished Ortho: Tenderness to palpation of toenails x5 - Neurological Exam Neurological exam: Alert, Oriented x3 - Psychiatric Exam Psychiatric exam: Normal Affect, Normal Mood Results - Vital Signs Recent Vital Signs: Last Vital Signs Temp 97.5 F L 12/30/17 07:59 Pulse 68 12/30/17 15:14 Resp 18 12/30/17 07:59 BP 96/43 L 12/30/17 15:14 Pulse Ox 98 12/30/17 07:59 - Labs Result Diagrams: 12/30/17 06:00 12/30/17 06:00 Labs: Laboratory Results - last 24 hr 12/29/17 12/29/17 12/30/17 16:14 20:50 06:00 WBC 5.9 RBC 4.28 L Hgb 11.7 L Hct 35.6 MCV 83.1 MCH 27.2 MCHC 32.8 L RDW 15.6 H Plt Count 283 Sodium Potassium Chloride Carbon Dioxide Anion Gap BUN Creatinine Est GFR ( Amer) Est GFR (Non-Af Amer) POC Glucose (mg/dL) 256 H 220 H Random Glucose Calcium Total Bilirubin AST ALT Alkaline Phosphatase Total Protein Albumin Globulin Albumin/Globulin Ratio 12/30/17 12/30/17 06:00 07:16 WBC RBC Hgb Hct MCV MCH MCHC RDW Plt Count Sodium 139 Potassium 4.5 Chloride 97 L Carbon Dioxide 27 Anion Gap 20 BUN 24 H Creatinine 0.9 Est GFR ( Amer) > 60 Est GFR (Non-Af Amer) > 60 POC Glucose (mg/dL) 212 H Random Glucose 231 H Calcium 9.3 Total Bilirubin 0.5 AST 24 ALT 32 Alkaline Phosphatase 90 Total Protein 7.4 Albumin 3.6 Globulin 3.8 Albumin/Globulin Ratio 1.0 Assessment & Plan - Assessment and Plan (Free Text) Assessment: 72 y/o male with left foot dystrophic thickened painful toenails x5 Plan: Pt seen and evaluated at bedside Aseptic debridement of toenails x 5 with sterile nippers 4th digit noted to have minor subungual bleeding post-procedure - dressed with bacitracin and bandaid Pt tolerated procedure well Podiatry to sign off at this time Please re-consult as needed
[2017-12-30] MEDS: Insulin Detemir 100 Units/ml Inj SC SCH (22:01)
[2017-12-31] MEDS: Pantoprazole 40 mg EC Tab PO SCH (07:27)
[2017-12-31] MEDS: Insulin Lispro (humaLOG) 100 Units/ml Inj SC SCH ×7 (07:52→21:18)
[2017-12-31] MEDS: Enoxaparin 40 mg Syringe SC SCH (08:46)
[2017-12-31] MEDS: Insulin Detemir 100 Units/ml Inj SC SCH (22:09)
[2018-01-01] MEDS: Insulin Lispro (humaLOG) 100 Units/ml Inj SC SCH ×4 (06:45→12:20)
[2018-01-01] MEDS: Pantoprazole 40 mg EC Tab PO SCH (06:59)
[2018-01-01 08:33] VITALS: RESP 22; TEMP 97.3; O2SAT 99
[2018-01-01] MEDS: Enoxaparin 40 mg Syringe SC SCH (08:51)
[2018-01-01 08:53] VITALS: BP 120/67; PULSE 110
--- NOTE | 2018-01-01 12:21 | CP.PCM.DIS ---
Provider - Provider Date of Admission: 12/16/17 16:34 Attending physician: Hali Landeros MD Consults: Dr Michelle Rocha Time Spent in preparation of Discharge (in minutes): 25 Diagnosis - Discharge Diagnosis (1) Below knee amputation status Status: Acute Comment: did well with PT/OT. stump wound healed and dry (2) DM2 (diabetes mellitus, type 2) Status: Acute Comment: BS controlled. continue Lispro 6 units SC AC and Levemir 34 units SC HS. continue Glucotrol 10mg PO BID (3) Parkinson disease Status: Acute Comment: continue Sinemet and Primidone (4) HTN (hypertension) Status: Acute Comment: BP controlled. continue Hydralazine 10mg PO q 8hrs and Losartan 50mg PO daily (5) CAD (coronary artery disease) Status: Acute Comment: continue Plavix and statin (6) Sleep apnea Status: Acute Comment: continue CPAP at bedtime Hospital Course - Lab Results Lab Results: Most Recent Lab Values WBC 5.9 K/uL (4.8-10.8) 12/30/17 06:00 RBC 4.28 Mil/uL (4.40-5.90) L 12/30/17 06:00 Hgb 11.7 g/dL (12.0-18.0) L 12/30/17 06:00 Hct 35.6 % (35.0-51.0) 12/30/17 06:00 MCV 83.1 fl (80.0-94.0) 12/30/17 06:00 MCH 27.2 pg (27.0-31.0) 12/30/17 06:00 MCHC 32.8 g/dL (33.0-37.0) L 12/30/17 06:00 RDW 15.6 % (11.5-14.5) H 12/30/17 06:00 Plt Count 283 K/uL (130-400) 12/30/17 06:00 Sodium 139 mmol/l (132-148) 12/30/17 06:00 Potassium 4.5 MMOL/L (3.6-5.0) 12/30/17 06:00 Chloride 97 mmol/L (98-107) L 12/30/17 06:00 Carbon Dioxide 27 mmol/L (22-30) 12/30/17 06:00 Anion Gap 20 (10-20) 12/30/17 06:00 BUN 24 mg/dl (9-20) H 12/30/17 06:00 Creatinine 0.9 mg/dl (0.8-1.5) 12/30/17 06:00 Est GFR ( Amer) > 60 12/30/17 06:00 Est GFR (Non-Af Amer) > 60 12/30/17 06:00 POC Glucose (mg/dL) 282 mg/dL (65-110) H 01/01/18 11:07 Random Glucose 231 mg/dL (75-110) H 12/30/17 06:00 Hemoglobin A1c 11.5 % (4.2-6.5) H 12/19/17 07:01 Calcium 9.3 mg/dL (8.4-10.2) 12/30/17 06:00 Total Bilirubin 0.5 mg/dl (0.2-1.3) 12/30/17 06:00 AST 24 U/L (17-59) 12/30/17 06:00 ALT 32 U/L (21-72) 12/30/17 06:00 Alkaline Phosphatase 90 U/L (38-126) 12/30/17 06:00 Total Protein 7.4 G/DL (6.3-8.2) 12/30/17 06:00 Albumin 3.6 g/dL (3.5-5.0) 12/30/17 06:00 Globulin 3.8 gm/dL (2.2-3.9) 12/30/17 06:00 Albumin/Globulin Ratio 1.0 (1.0-2.1) 12/30/17 06:00 - Hospital Course Hospital Course: 72 yo male with history of Parkinsonism, DM2, HTN, HLD, CAD, COPD, PVD and Pacemaker placement for SSS had BKA of the right leg on 12/09/2017 at [facility] because of gangrene of the foot. He was transferred to [facility] and managed at [facility]. He did well with rehab and now was ready for discharge to home. Discharge Exam - Head Exam Head Exam: ATRAUMATIC, NORMAL INSPECTION, NORMOCEPHALIC - Eye Exam Eye Exam: Normal appearance - ENT Exam ENT Exam: Mucous Membranes Moist - Respiratory Exam Respiratory Exam: absent: Rales, Rhonchi, Wheezes, Respiratory Distress - Cardiovascular Exam Cardiovascular Exam: REGULAR RHYTHM, +S1, +S2 - GI/Abdominal Exam GI & Abdominal Exam: Soft. absent: Tenderness - Rectal Exam Rectal Exam: Deferred - Neurological Exam Neurological exam: Alert, Oriented x3 - Psychiatric Exam Psychiatric exam: Normal Affect - Skin Skin Exam: Dry, Intact Discharge Plan - Discharge Medications Prescriptions: hydrALAZINE [Apresoline] 10 mg PO Q8 #90 tab - Follow Up Plan Condition: GOOD Disposition: HOME/ ROUTINE Instructions: Insulin Detemir, Heart Healthy Diet, Quitting Smoking for Older Adults, Diabetes Diet , Quitting Smoking, Pregabalin, Atorvastatin, Clopidogrel , Glipizide, Hydralazine, Carbidopa and Levodopa, Losartan, Mupirocin, Nicotine , Pantoprazole, Primidone, Amputation, [id number] (DC), Going Home on Blood Thinners , Diabetic Meal Planning , Insulin Lispro
== END 2018-01-01 13:45 | disposition home or self-care (01) | DRG 561 ==
LOC: EDSEX 16:34
PROVIDERS: ADMIT Hospitalist; ATTEND Hospitalist
PROC: F07Z9FZ Gait Training/Functional Ambulation Treatment using Assistive, Adaptive, Supportive or Protective Equipment (ICD-10-PCS; principal; 2017-12-16)
PROC: F08Z4FZ Home Management Treatment using Assistive, Adaptive, Supportive or Protective Equipment (ICD-10-PCS; 2017-12-16)
PROC: F07L6FZ Therapeutic Exercise Treatment of Musculoskeletal System - Lower Back / Lower Extremity using Assistive, Adaptive, Supportive or Protective Equipment (ICD-10-PCS; 2017-12-16)
DX: Z47.81 Encounter for orthopedic aftercare following surgical amputation (principal); Z89.511 Acquired absence of right leg below knee; E11.51 Type 2 diabetes mellitus with diabetic peripheral angiopathy without gangrene; G20 Parkinson's disease; I25.10 Atherosclerotic heart disease of native coronary artery without angina pectoris; Z79.4 Long term (current) use of insulin; Z95.0 Presence of cardiac pacemaker; I10 Essential (primary) hypertension